=== PATIENT | male | born 1950 | race Caucasian/White ===

== ENCOUNTER 2016-06-02 11:09 | Observation (INO) | payer OTHER ==
[~2016-06-02 11:09] MED LIST: Buffered Lidocaine 1% SYRIN* 3 ML/SYR SYRINGE INTRADERM ONE
[2016-06-02] MEDS ORDERED: Morphine INJ* 10 MG/ML 1 ML SYRINGE ONE (12:39)
[2016-06-02] MEDS ORDERED: Benzocaine/Butamben/Tetracain* SPRAY ONE (14:32)
[2016-06-02] MEDS ORDERED: Lidocain 1% EPI 1:100,000 * 30 ML MDV ONE (14:45)
[2016-06-02] MEDS ORDERED: Bacitracin OINTMENT* 1 TUBE ONE (14:46)
[2016-06-02] MEDS ORDERED: Phenylephrine 0.25% NASAL* PUFF ONE (14:58)
[2016-06-02] MEDS ORDERED: Midazolam* 1 MG/ML 5 ML VIAL (5 MG) ONE (14:58)
[2016-06-02] MEDS ORDERED: Lidocaine 2% JELLY* 6 ML JELLY TOPICAL ONE (14:59)
[2016-06-02] MEDS ORDERED: Propofol* 10 MG/ML 20 ML BTL IV PUSH ONE (14:59)
[2016-06-02] MEDS ORDERED: Phenylephrine 0.5% NASAL* BTL ONE (14:59)
[2016-06-02] MEDS ORDERED: fentaNYL* 50 MCG/ML 2 ML VIAL (100 MCG VIAL) ONE ×3 (14:59→16:38)
[2016-06-02] MEDS ORDERED: Dexamethasone IV* 4 MG/ML 1 ML (4 MG) ONE (15:23)
[2016-06-02] MEDS ORDERED: fentaNYL* 50 MCG/ML 2 ML VIAL (100 MCG VIAL) IV PRN (17:13)
[2016-06-02] MEDS ORDERED: Ondansetron INJ* 2 MG/ML VIAL IV PRN ×2 (17:13→20:06)
[2016-06-02] MEDS ORDERED: DiMENhydriNATE IV* 50 MG/ML VIAL IV PUSH PRN (17:13)
[2016-06-02] MEDS ORDERED: diPHENhydraMINE IV* 50 MG/ML 1 ml VIAL (BENADRYL) IV PRN (17:13)
[2016-06-02] MEDS ORDERED: Ondansetron INJ* 2 MG/ML VIAL ONE (17:39)
[2016-06-02] MEDS ORDERED: HYDROmorphone* 1 MG/ML 1 ML SYR ONE (18:02)
[2016-06-02] MEDS: HYDROmorphone* 1 MG/ML 1 ML SYR IV PRN ×5 (18:03→19:20)
[2016-06-02] MEDS ORDERED: Acetaminophen TAB* 325 MG PO PRN (20:03)
[2016-06-02] MEDS ORDERED: Ibuprofen TAB* 800 MG PO PRN (20:03)
[2016-06-02] MEDS ORDERED: HYDROcodone/ACETAMIN 5-325 MG* 1 TAB PO PRN ×2 (20:04)
[2016-06-02] MEDS ORDERED: Ondansetron TAB* 4 MG PO PRN (20:06)
[2016-06-02] MEDS ORDERED: Ondansetron INJ* 2 MG/ML VIAL IM PRN (20:06)
[2016-06-02] MEDS ORDERED: Lidocaine 2% VISCOUS* 15 ML UDC PO PRN (20:10)
[2016-06-02] MEDS ORDERED: Polyethylene Glycol 3350* 17 GM PACKET PO PRN (20:10)
[2016-06-02] MEDS: MAGIC MOUTHWASH PO SCH (21:45)
--- NOTE | 2016-06-03 01:33 | CONS ---
[facility] MEDICINE CONSULTATION REPORT: DATE OF CONSULTATION: 06/02/16 ATTENDING PHYSICIAN: Dr. Sudhir Hollins. CONSULTING PHYSICIAN: Sulaiman Rea (dictation provided by Jessica Paris NP) REASON FOR CONSULTATION: Medical comanagement in the patient admitted for left neck dissection due to left tonsillar cancer. HISTORY OF PRESENT ILLNESS: Mr. Mancia is a 66-year-old male with a longstanding smoking history. 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 He has undergone radiation and chemotherapy, but a recent PET scan showed concern for residual disease in the left neck. He therefore followed up with Dr. Hollins, Dr. Rea, and Dr. Millard and a left neck dissection was scheduled for today. Mr. Mancia states that he has been feeling quite poorly secondary to this cancer and the treatment for it. He has had severe case of thrush for which he is taking Miracle Mouthwash and nystatin, which he says has not improved his symptoms. He has not been able to eat since starting therapy and currently has a G-tube placed. He denies any other symptoms. He has had no chest pain, no shortness of breath, no nausea, abdominal pain. PAST MEDICAL HISTORY: 1. Hypertension. 2. Atrial fibrillation. 3. Lymphadenopathy. 4. History of congestive heart failure. MEDICATIONS: 1. Tylenol p.r.n. 2. Aspirin 81 mg via G-tube daily. 3. Dronedarone 400 mg via G-tube daily. 4. Lidocaine 50 mL p.o. 4 times a day p.r.n. 5. Lisinopril 10 mg p.o. daily. 6. Morphine concentrate 10 mg p.o. q.3 hours p.r.n. 7. MiraLAX 17 g via PEG tube daily p.r.n. 8. Rivaroxaban 20 mg p.o. daily. 9. Miracle Mouthwash 4 times daily p.r.n. ALLERGIES: No known drug allergies. FAMILY HISTORY: The patient reports that mother and father both live in their old age. He is unable to provide me with further information today. SOCIAL HISTORY: The patient is a former smoker, quit last year. No report of alcohol or drug use. He states he lives with his , who is the healthcare proxy. REVIEW OF SYSTEMS: A 14-point review of systems was completed with Mr. Mancia and all those not mentioned above were negative. PHYSICAL EXAMINATION: Vital Signs: Temperature 99.1, pulse rate 103, respiratory rate 16, O2 saturation 94% on 2 L nasal cannula, blood pressure 141/ 71. General: Mr. Mancia is lying in the bed. He is in no acute distress. Neuro: He is alert and oriented x3, moves all extremities equally. There is no facial asymmetry or focal weakness. Extraocular movements are intact. Heart : S1, S2. No murmur, rub, or gallop and regular. Lungs are clear to auscultation bilaterally with no accessory muscle use and good aeration. Abdomen: Soft, nontender with bowel sounds positive x4. Extremities: No cyanosis or edema. Skin: Intact. HEENT: Pupils are equal and reactive. The patient has swelling noted actually to the right neck. The patient states this has been an ongoing issues since starting treatment for left tonsillar cancer. He is swallowing easily. He has actually eaten some apple sauce today. He is breathing easily. DIAGNOSTIC STUDIES/LAB DATA: On 05/24/16, WBC 5.8, hemoglobin 11.3, hematocrit 34, platelet count 260. Sodium 131, potassium 4.7, chloride 95, serum bicarbonate 30, BUN 17, creatinine 0.74, glucose 74. ASSESSMENT: Ms. 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 Our recommendations are as follows: 1. Postop day #0, status post dissection of left tonsillar cancer: Management will be per ENT. The patient will have pain medication p.r.n. and notes that he is breathing easily and swallowing easily tonight. The patient states that he gets his primary nutrition through his G-tube. He does not know what type of tube feeding he has been using. He anticipates discharge home tomorrow. If he does continue to stay with us, we can either get that information from his family or have dietitian consult for recommendations for feeding while inpatient. 2. History of atrial fibrillation. Continue Multaq. The patient's heart rate is controlled. The patient was seen preoperatively by Dr. Adames who saw that no further cardiac testing was indicated and recommended that the patient resume Xarelto when approved for surgery and note that Dr. Hollins has already approved rivaroxaban to start tomorrow. 3. Hypertension. Continue lisinopril. 4. DVT prophylaxis with Xarelto to start tomorrow. SCDs have been ordered for tonight. 5. Disposition per ENT surgeons. 6. Code status is full code. TIME SPENT: Approximately 60 minutes were spent in the consultation of this patient, more than half the time was spent with the patient at bedside reviewing the events leading up to this hospitalization, performing the physical examination, and reviewing the [place] [id number]/[facility] #: [id number] OBDULIO
[2016-06-03] MEDS: Morphine ORAL.SOLN 10 mg* 2 MG/ML UDC 5 ml PO PRN ×2 (05:08→09:00)
[2016-06-03] MEDS: MAGIC MOUTHWASH PO SCH (08:56)
[2016-06-03] MEDS ORDERED: Lisinopril TAB* 10 MG PO SCH (09:00)
[2016-06-03] MEDS ORDERED: Dronedarone TAB* 400 MG PO SCH (09:00)
[2016-06-03] MEDS ORDERED: Rivaroxaban TAB(*) 20 MG TAB PO SCH (09:00)
[2016-06-03 11:59] VITALS: BP 96/54
--- NOTE | 2016-06-03 13:32 | OP ---
DATE OF OPERATION: 06/02/16 - ROOM #333 DATE OF : 54 SURGEON: Sudhir Hollins MD. DATA ANALYTICS SPECIALIST: Jacques Zaidi MD ANESTHESIOLOGIST: Domenico Caal MD ANESTHESIA: General endotracheal anesthesia. 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 OPERATIVE PROCEDURE: Left selective neck dissection. ESTIMATED BLOOD LOSS: Less than 20 mL. DRAINS: #10 DOYLE was placed. COMPLICATIONS: None. DESCRIPTION OF PROCEDURE: The patient was taken to the operating room, placed in a supine position on the operating table, general anesthesia induced, and he was orotracheally intubated. His neck was extended and turned. Apron incision was demarcated from the left mastoid tip inferiorly into the skin crease at the level of the cricoid crossing midline and this was injected with a 1% lidocaine with 1:100,000 epinephrine. He was prepped with Betadine and draped in a sterile fashion. Incisions were made through the skin, through the platysma muscle and superior and inferior flaps were raised. The inferior border of the submandibular gland was found and the dissection was taken down to the digastric , which was the superior aspect of the dissection. Relevant structures that were found and preserved were the spinal accessory nerve, the hypoglossal nerve , the carotid artery, jugular vein, vagus nerve. The dissection was taken posteriorly into the submuscular recess. This was taken off the floor of the neck underneath the spinal accessory nerve. The fascia was peeled off with the sternocleidomastoid muscle and was unwrapped. The specimen was taken anteriorly , taken underneath the sternocleidomastoid muscle to the deep layers of the neck and was peeled off the deep cervical fascia. The internal jugular vein was unwrapped and dissection was taken down to the carotid and the vagus nerve and the dissection was peeled off with those. The fascia was lifted off the lateral aspect of the larynx and the dissection was removed from the patient's neck. Hemostasis was ensured. The wound was irrigated. A #10 DOYLE was placed. The skin was closed with 3-0 deep dermal Polysorbs and stapled. [id number]/[facility] #: [id number] [facility]
--- NOTE | 2016-06-04 04:51 | DS ---
DISCHARGE SUMMARY: DATE OF ADMISSION: 06/02/16 DATE OF DISCHARGE: 06/03/16 ADMISSION DIAGNOSIS: Left neck dissection for left tonsillar cancer. SECONDARY DIAGNOSES: 1. Hypertension. 2. Atrial fibrillation. 3. Lymphadenopathy. 4. History of congestive heart failure. DISCHARGE DIAGNOSES: 1. Left neck dissection for left tonsillar cancer. 2. Hypertension. 3. Atrial fibrillation. 4. Lymphadenopathy. 4. History of congestive heart failure. HOSPITAL COURSE: The patient is a 66-year-old gentleman who presented to [facility] for left neck dissection by Dr. Hollins. Management as for the left neck dissection was performed by Dr. Hollins. Our assistance was asked in the help of this hypertension and atrial fibrillation. His Xarelto was held, continued his Multaq. The patient did well through the surgery and was stable for discharge on 06/03/16. His blood pressure was adequately managed. Conversation was had with the surgeon, and the patient and the patient will hold his Xarelto for the next 7 days as well as his aspirin until we follows up with [facility] next Tuesday when he sees Dr. Hollins. At that point, he can restart the medications. PHYSICAL EXAMINATION ON THE DATE OF DISCHARGE: General: Overweight gentleman, sitting up in bed, in no acute distress. Vital Signs: Temperature 97.6 degrees , heart rate 88 beats per minute, respiratory rate 16 breaths per minute, pulse ox 100%, blood pressure 129/56. HEENT: Normocephalic, atraumatic. Neck: Large wound, clean, dry and intact on the left side of his neck. Chest: Clear to auscultation and percussion bilaterally. Cardiovascular: S1, S2 appreciated. Abdomen: Obese, positive bowel sounds in all 4 quadrants, soft, nontender. Extremities: No cyanosis, or clubbing, 2+ peripheral pulses bilaterally. Neuro: Alert and oriented x3. Moves all extremities. Skin: No rashes or abnormalities. DISCHARGE MEDICATIONS: 1. MiraLAX via PEG tube daily as needed. 2. Morphine oral concentrate every 3 hours as needed for pain. 3. Lisinopril 10 mg daily. 4. Lidocaine Viscous 15 cc 4 times a day as needed. 5. Multaq 400 mg daily. 6. Aspirin 81 mg daily. 7. Acetaminophen 600 mg every 4 hours as needed via PEG tube. 8. Compound mouthwash 2 teaspoons 4 times a day as needed. 9. Again, he will start the Xarelto and aspirin as an outpatient next week. DISCHARGE PLAN: The patient is discharged home. He is to follow up with Dr. Hollins next week. He is to follow up with his PCP within 1 week. The patient to return to ED if has any worrisome symptoms. Over 40 minutes were spent on this discharge, more than 25 minutes of which were spent in direct dsvi-ru-ehom contact with the patient in evaluation, physical exam, counseling and coordination of care. CC: Dr. Nils Hollins; Dex Kim MD * [id number]/[facility] #: [id number] [facility]PITALNavid
== END 2016-06-03 12:25 | disposition home or self-care (01) ==
LOC: OR 11:09 → SSU 19:45
PROVIDERS: ADMIT Otolaryngology; ATTEND Otolaryngology
DX: C77.0 Secondary and unspecified malignant neoplasm of lymph nodes of head, face and neck (principal); I10 Essential (primary) hypertension; I48.91 Unspecified atrial fibrillation; F17.200 Nicotine dependence, unspecified, uncomplicated; R59.1 Generalized enlarged lymph nodes; Z79.82 Long term (current) use of aspirin; Z79.01 Long term (current) use of anticoagulants
CPT/HCPCS: 88307; 96365; 96375; A9270-GY; G0378; J1100; J1170; J2250; J2270; J2405; J2704; J3010

== ENCOUNTER 2017-05-22 18:59 | Emergency (ER) | payer MEDICARE, OTHER ==
--- NOTE | 2017-05-22 19:49 | RAD ---
INDICATION: Inability to get out of the chair in a patient with a history of stroke. COMPARISON: CT of the brain dated January 22, 2016 TECHNIQUE: Contiguous axial sections of the brain were obtained from the skull base to the vertex without contrast. FINDINGS: Unless otherwise specified comparisons below reference the 1515 CT of the brain. The ventricles, cisterns and sulci involutional changes similar in appearance to the previous CT the brain. In the white matter tracts of the right frontal lobe (image 19 of 32) there is a 1 cm hypoattenuating focus seen in the previous CT the brain. There is mild periventricular and subcortical white matter hypoattenuation, similar in appearance to the previous CT the brain, most consistent with chronic microvascular disease. Otherwise the jones-white matter differentiation is adequately maintained and there is no sulcal effacement. No significant focal abnormality or mass effect is present. There is no evidence for intracranial hemorrhage. No significant focal osseous abnormality is present. There is mild mucosal thickening of the visualized portions of the left maxillary sinus. There is near complete effusion of the left mastoid air cells as well as effusion of the right mastoid air cells. IMPRESSION: 1. There is a new 1 cm hypoattenuating focus in the white matter tracts of the right frontal lobe that was not seen on the previous CT the brain. On a background of microvascular disease that appears more chronic. The patient is exhibiting focal neurologic deficits superior characterization can be made with MRI of the brain. 2. Chronic left mastoid air cell effusion with interval development of mastoid air cell effusion on the right as well relative to the January 22, 2016 CT of the brain. Please correlate to any focal tenderness overlying the mastoid processes.
[2017-05-22 20:04] LABS: ABS Basophils 0 10^3/ul (0-0.2); ABS Eosinophils 0 10^3/ul (0-0.6); ABS Lymphocytes 1.3 10^3/ul (1.0-4.8); ABS Monocytes 0.5 10^3/ul (0-0.8); ABS Neutrophils 12.2 10^3/ul (1.5-7.7); ABS Nucleated RBC 0 10^3/ul; Eosinophil % 0 % (0-6); Hematocrit 37 % (42-52); Hemoglobin 12.5 g/dl (14.0-18.0); Lymphocyte % 9.1 % (25-47); Mean Corpuscular HGB Conc 34 g/dl (31-36); Mean Corpuscular Hemoglobin 30 pg (27-31); Mean Corpuscular Volume 87 fL (80-94); Mean Platelet Volume 6.9 um3 (7.4-10.4); Nucleated Red Blood Cells % 0; Platelet Count 303 10^3/ul (150-450); Red Blood Count 4.21 10^6/ul (4.0-5.4); Red Cell Distribution Width 15 % (10.5-15)
[2017-05-22 20:11] LABS: INR 1.38 (0.77-1.02)
[2017-05-22 20:19] LABS: EGFR Non-African American 104.5 (>60)
[2017-05-22] MEDS ORDERED: NS 0.9% 1000 ML* 1,000 ML IV ONE (20:31)
--- NOTE | 2017-05-22 20:55 | RAD ---
INDICATION: Productive cough COMPARISON: Most recent comparison chest x-rays dated February 03, 2016 TECHNIQUE: Single AP portable view of the chest was obtained. FINDINGS: Image quality is compromised due to the relative inferiority of a portable chest x-ray. The heart and mediastinum exhibit normal size and contour. There is patchy infiltrate overlying the right lower lung. Elsewhere the lungs are grossly clear. There is no evidence of a large pleural effusion. Visualized bones are normal for the patient's age. IMPRESSION: Patchy infiltrate overlying the right lower lung could be pneumonia or other infiltrate depending on the patient's clinical presentation.
[2017-05-22] MEDS ORDERED: Piperacillin/Tazobac ADVAN(*) 3.375 GM in NS 0.9% 100 ML* 100 ML IVPB ONE (21:07)
[2017-05-22 22:40] VITALS: BP 132/62
--- NOTE | 2017-05-22 23:01 | ED ---
Bernie Castro Gabriel, scribed for Missy Olivo MD on 05/22/17 at 1932 . Neurological HPI - HPI Summary HPI Summary: This patient is a 67 year old M presenting to [facility] accompanied by his with a chief complaint of a possible CVA. Pts states yesterday and today the pt has been experiencing similar symptoms to his last TIA which occurred last week. She reports fatigue, weakness, unable to walk, flank pain, diaphoresis, low BP, and slurred speech. Patient denies increased facial droop on the left sided. He also personally has no specific complaints except for the flank pain. Pt had a CVA recently and was seen at [facility] there he was given an MRI and sonogram, but they could not remove the clot due to the severe blockage. There was no rehab performed and the patient was discharged 4 days ago. Currently he takes eliquis, Lipitor, multaq, and ASA. Pt is able to ambulate in the ED. History of throat, head, and neck cancer with chemo that left him with left sided weakness as result. He was seen a week ago for difficulty ambulating. The MRI performed then showed a right frontal subacute hemorrhage infarct. 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 - History of Current Complaint Chief Complaint: EDWeakness Stated Complaint: POSSIBLE STROKE Time Seen by Provider: 05/22/17 19:03 Hx Obtained From: Patient Onset/Duration: Started days ago - 1, Still Present Timing: Constant Onset Severity: Mild Current Severity: Moderate Pain Intensity: 8 Pain Scale Used: 0-10 Numeric Associated Signs and Symptoms: Positive: Negative - increased facial droop, Weakness, Impaired Speech - Additional Pertinent History Primary Care Physician: [id number] - Allergy/Home Medications Allergies/Adverse Reactions: Allergies Allergy/AdvReac Type Severity Reaction Status Date / Time No Known Allergies Allergy Verified 05/22/17 20:20 Home Medications: Home Medications Apixaban* [Eliquis*] 5 mg PO BID 05/22/17 [History Confirmed 05/22/17] Atorvastatin* [Lipitor*] 10 mg PO QPM 05/22/17 [History Confirmed 05/22/17] Morphine TAB Extended Rel(*) [Ms Contin(*)] 15 mg PO Q12HR PRN MDD 30mg [History Confirmed 05/22/17] Varenicline (NF) [Chantix 1 MG TAB (NF)] 1 mg PO DAILY 05/22/17 [History Confirmed 05/22/17] PMH/Surg Hx/FS Hx/Imm Hx Endocrine/Hematology History: Denies: Hx Diabetes Cardiovascular History: Reports: Hx Congestive Heart Failure, Other Cardiovascular Problems/Disorders - IRREGULAR HEARTBEAT Denies: Hx Hypertension, Hx Pacemaker/ICD Respiratory History: Reports: Hx Pulmonary Embolism - march 2016 - resolved with Dr. Rea, Other Respiratory Problems/Disorders - tonsil cancer GI History: Reports: Other GI Disorders - peg tube History: Denies: Hx Renal Disease Musculoskeletal History: Reports: Hx Arthritis, Hx Orthopedic Injury - surgery bilat knee, Other Musculoskeletal History - recent right knee infection with aspiration / staph infection- resolved Sensory History: Reports: Hx Contacts or Glasses Denies: Hx Hearing Aid Opthamlomology History: Reports: Hx Contacts or Glasses Psychiatric History: Reports: Hx Substance Abuse - ETOH Denies: Hx Panic Disorder - Cancer History Cancer Type, Location and Year: MOUTH, Neck? Hx Chemotherapy: Yes - and radiation Hx Radiation Therapy: Yes Hx Palliative Cancer Treatment: No - Surgical History Surgery Procedure, Year, and Place: Peg tube placed 12/2015 , Left Neck Lymphnodes Removed Hx Anesthesia Reactions: No Infectious Disease History: No Infectious Disease History: Reports: History Other Infectious Disease - staph rt knee Denies: Traveled Outside the [place] in Last 30 Days - Family History Known Family History: Positive: Hypertension, Diabetes, Other - stroke - Social History Alcohol Use: None Alcohol Amount: hx of ETOH abuse per prior records Substance Use Type: Reports: None Hx Tobacco Use: Yes Smoking Status (MU): Former Smoker Type: Cigarettes Amount Used/How Often: smsoked 30-35 years 1 1/2 ppd Length of Time of Smoking/Using Tobacco: 35 yrs Have You Smoked in the Last Year: Yes Review of Systems Positive: Fatigue, Skin Diaphoresis, Other - unable to walk Positive: Other - low BP Positive: flank pain Neurological: Negative - facial droop Positive: Weakness, Slurred Speech All Other Systems Reviewed And Are Negative: Yes Physical Exam - Summary Physical Exam Summary: VITAL SIGNS: Reviewed. GENERAL: Patient is an elderly male who is lying comfortable in the stretcher. Patient is not in any acute respiratory distress. HEAD AND FACE: No signs of trauma. No ecchymosis, hematomas or skull depressions. No sinus tenderness. EYES: PERRLA, EOMI x 2, No injected conjunctiva, no nystagmus. EARS: Hearing grossly intact. Ear canals and tympanic membranes are within normal limits. MOUTH: Oropharynx within normal limits. NECK: Supple, trachea is midline, no adenopathy, no JVD, no carotid bruit, no c- spine tenderness, neck with full ROM. CHEST: Symmetric, no tenderness at palpation LUNGS: Clear to auscultation bilaterally. No wheezing or crackles. CVS: Regular rate and rhythm, S1 and S2 present, no murmurs or gallops appreciated. ABDOMEN: Soft, non-tender. No signs of distention. No rebound no guarding, and no masses palpated. Bowel sounds are normal. EXTREMITIES: FROM in all major joints, no edema, no cyanosis or clubbing. NEURO: Alert and oriented x 3. Speech is normal and follows commands. Motor is grossly nonfocal, Pt has a left sided facial droop that is old. Mild dysarthria that is also old. Pt amulabtes in the ED on his own. SKIN: Dry and warm Triage Information Reviewed: Yes Vital Signs On Initial Exam: Initial Vitals Temp Pulse Resp BP Pulse Ox 97.5 F 83 20 123/66 93 05/22/17 19:02 05/22/17 19:02 05/22/17 19:02 05/22/17 19:02 05/22/17 19:02 Vital Signs Reviewed: Yes Diagnostics - Vital Signs Vital Signs Temp Pulse Resp BP Pulse Ox 05/22/17 19:07 19 123/66 05/22/17 19:02 97.5 F 83 20 123/66 93 - Laboratory Result Diagrams: 05/22/17 19:50 05/22/17 19:50 Lab Statement: Any lab studies that have been ordered have been reviewed, and results considered in the medical decision making process. - Radiology CXR Radiology Interpretation Completed By: Radiologist - Patchy infiltrate overlying the right lower lung could be pneumonia or other infiltrate depending on the patient's clinical presentation. ED physician has reviewed this radiology report. - CT CT Brain CT Interpretation Completed By: Radiologist - 1. There is a new 1 cm hypoattenuating focus in the white matter tracts of the right frontal lobe that was not seen on the previous CT the brain. On a background of microvascular disease that appears more chronic. The patient is exhibiting focal neurologic deficits superior characterization can be made with MRI of the brain. 2. Chronic left mastoid air cell effusion with interval development of mastoid air cell effusion on the right as well relative to the January 22, 2016 CT of the brain. Please correlate to any focal tenderness overlying the mastoid processes. ED physician has reviewed this radiology report. - EKG 19:42 Cardiac Rate: NL EKG Rhythm: Sinus Rhythm - at 78 BPM EKG Interpretation: Normal axis. Normal interval. No ischemic changes Re-Evaluation - Re-Evaluation First Eval Re-Evaluation Time: 21:29 Change: Unchanged Comment: I discussed the test results with the patient as well as the course of treatment. He understands and agrees. Course/Dx - Course Assessment/Plan: This patient is a 67 year old M presenting to [facility] accompanied by his with a chief complaint of a possible CVA. Pts states yesterday and today the pt has been experiencing similar symptoms to his last TIA which occurred last week. She reports fatigue, weakness, unable to walk , flank pain, diaphoresis, low BP, and slurred speech. Patient denies increased facial droop on the left sided. He also personally has no specific complaints except for the flank pain. Pt had a CVA recently and was seen at [facility] there he was given an MRI and sonogram, but they could not remove the clot due to the severe blockage. There was no rehab performed and the patient was discharged 4 days ago. Currently he takes eliquis, Lipitor, multaq, and ASA. Pt is able to ambulate in the ED. History of throat, head, and neck cancer with chemo that left him with left sided weakness as result. He was seen a week ago for difficulty ambulating. The MRI performed then showed a right frontal subacute hemorrhage infarct. 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 An EKG reveals sinus 78 Normal axis. Normal interval. No ischemic changes. CT Brain reveals, per radiologist, 1. There is a new 1 cm hypoattenuating focus in the white matter tracts of the right. frontal lobe that was not seen on the previous CT the brain. On a background of microvascular disease that appears more chronic. The patient is exhibiting focal neurologic deficits superior characterization can be made with MRI of the brain. 2. Chronic left mastoid air cell effusion with interval development of mastoid air cell. effusion on the right as well relative to the January 22, 2016 CT of the brain. Please. correlate to any focal tenderness overlying the mastoid processes. CXR reveals, per radiology, Patchy infiltrate overlying the right lower lung could be pneumonia or other. infiltrate depending on the patient's clinical presentation. Pts CT did show a hypodense area in right frontal lobe that corresponds with the infarct from the MRI a week ago. Pt neuro exam is at baseline and he was found to have right lower lobe infiltrate, possible aspiration PNA. PT was given one dose zosyn in the ED and I discussed admission and he states he would rather go home. Pts was in the room and understands and agrees with the course of treatment, there are no further questions at this time. DX PNA. Patient will be discharged with prescription for Augmentin and follow up from PCP. The patient is agreeable with this plan. - Diagnoses Provider Diagnoses: PNA (pneumonia) Discharge - Sign-Out/Discharge Documenting (check all that apply): Discharge - Discharge Plan Condition: Stable Disposition: HOME Patient Education Materials: Pneumonia (ED) Referrals: Dex Kim MD [Primary Care Provider] - 3 Days Additional Instructions: RETURN TO THE ER FOR ANY NEW OR WORSENING SYMPTOMS The documentation as recorded by the Bernie bermudez Gabriel accurately reflects the service I personally performed and the decisions made by , Missy Olivo MD.
== END 2017-05-22 22:40 | disposition home or self-care (01) ==
LOC: ED 18:59
DX: J18.9 Pneumonia, unspecified organism (principal); R53.83 Other fatigue; M54.5 Low back pain; R53.1 Weakness; Z87.891 Personal history of nicotine dependence
CPT/HCPCS: 36415; 70450; 71045; 80053; 83735; 85025; 85610; 85730; 87040; 93005; 99283; J2543

== ENCOUNTER 2018-01-22 08:22 | Inpatient (IN) | payer MEDICARE, OTHER ==
[2018-01-22] MEDS ORDERED: NS 0.9% 1000 ML* 1,000 ML IV ONE ×3 (08:25→11:08)
--- NOTE | 2018-01-22 08:39 | ED ---
Neurological HPI - HPI Summary HPI Summary: Pt is a 67 y/o male brought in by EMS who presents to the ED c/o left-sided neurological deficit. His last known well was at 23:00 last night. Pt c/o left- sided weakness, left-sided sensory deficit, LUE and LLE drift, left-sided facial droop, dysarthria, and diarrhea. He has tonsillar cancer and his last dose of Morphine was last night at 21:00. Pt is on Coumadin and Eliquis, and had a dose of Coumadin this morning. PMHx TIA. - History of Current Complaint Stated Complaint: POSSIBLE STROKE Time Seen by Provider: 01/22/18 08:25 Hx Obtained From: Patient, EMS Onset/Duration: Gradual Onset, Started hours ago - 23:00 last night, Still Present Timing: Constant Neurological Deficit Location: LUE, LLE Pain Intensity: 0 Pain Scale Used: 0-10 Numeric Character: Motor Weakness, Sensory Loss Related Hx: Coumadin - Additional Pertinent History Primary Care Physician: BERTIN - Allergy/Home Medications Allergies/Adverse Reactions: Allergies Allergy/AdvReac Type Severity Reaction Status Date / Time No Known Allergies Allergy Verified 08/05/17 08:10 PMH/Surg Hx/FS Hx/Imm Hx Endocrine/Hematology History: Denies: Hx Diabetes Cardiovascular History: Reports: Hx Congestive Heart Failure, Hx Hypertension, Other Cardiovascular Problems/Disorders - HX OF MINI STROKE Denies: Hx Pacemaker/ICD Respiratory History: Reports: Hx Pulmonary Embolism - march 2016 - resolved with Dr. Rea, Other Respiratory Problems/Disorders - tonsil cancer GI History: Reports: Other GI Disorders - peg tube History: Denies: Hx Dialysis, Hx Renal Disease Musculoskeletal History: Reports: Hx Arthritis, Hx Orthopedic Injury - surgery bilat knee, Other Musculoskeletal History - recent right knee infection with aspiration / staph infection- resolved Sensory History: Reports: Hx Contacts or Glasses Denies: Hx Hearing Aid Opthamlomology History: Reports: Hx Contacts or Glasses Neurological History: Reports: Hx Transient Ischemic Attacks (TIA) Psychiatric History: Reports: Hx Substance Abuse - ETOH Denies: Hx Panic Disorder - Cancer History Cancer Type, Location and Year: MOUTH, Neck? Hx Chemotherapy: Yes - and radiation Hx Radiation Therapy: Yes Hx Palliative Cancer Treatment: No - Surgical History Surgery Procedure, Year, and Place: Peg tube placed 12/2015 removed, Left Neck Lymphnodes Removed Hx Anesthesia Reactions: No Infectious Disease History: No Infectious Disease History: Reports: History Other Infectious Disease - staph rt knee Denies: Traveled Outside the [place] in Last 30 Days - Family History Known Family History: Positive: Hypertension, Diabetes, Other - stroke - Social History Alcohol Use: None Alcohol Amount: hx of ETOH abuse per prior records Hx Substance Use: No Substance Use Type: Reports: None Hx Tobacco Use: Yes Smoking Status (MU): Former Smoker Type: Cigarettes Amount Used/How Often: smsoked 30-35 years 1 1/2 ppd Length of Time of Smoking/Using Tobacco: 35 yrs Have You Smoked in the Last Year: Yes Review of Systems Negative: Fever Positive: Diarrhea Neurological: Other - dysarthria Positive: Weakness, Numbness All Other Systems Reviewed And Are Negative: Yes Physical Exam - Summary Physical Exam Summary: Appearance: chronically-ill appearing, no pain distress Skin: warm, dry, reflects adequate perfusion, thin, frail Head/face: normal Eyes: EOMI, ARPITA, dense cataract in right eye ENT: mucous membranes very dry Neck: supple, non-tender, tumor underneath chin Respiratory: CTA, breath sounds present Cardiovascular: RRR, pulses symmetrical Abdomen: non-tender, soft Bowel Sounds: present Musculoskeletal: normal, strength/ROM intact Neuro: A&Ox3, drift LUE and LLE, ataxic LLE, mild dysarthria, sensory deficit LLE, mild left facial droop GCS: 15 Triage Information Reviewed: Yes Vital Signs On Initial Exam: Initial Vitals Temp Pulse Resp BP Pulse Ox 98.8 F 97 19 117/58 91 01/22/18 08:30 01/22/18 08:30 01/22/18 08:30 01/22/18 08:30 01/22/18 08:30 Vital Signs Reviewed: Yes Diagnostics - Vital Signs Vital Signs Temp Pulse Resp BP Pulse Ox 01/22/18 08:30 98.8 F 97 19 117/58 91 - Laboratory Result Diagrams: 01/22/18 08:47 01/22/18 08:47 Lab Statement: Any lab studies that have been ordered have been reviewed, and results considered in the medical decision making process. - Radiology CXR Radiology Interpretation Completed By: Radiologist Summary of Radiographic Findings: RIGHT GREATER THAN LEFT BIBASILAR CONSOLIDATION. RECOMMEND FOLLOW-UP UNTIL RESOLUTION TO EXCLUDE UNDERLYING PULMONARY PARENCHYMAL PATHOLOGY. ED physician reviewed radiology report. - CT Brain CT CT Interpretation Completed By: Radiologist Summary of CT Findings: 1. NO ACUTE INTRACRANIAL PATHOLOGY. 2. CHRONIC SMALL VESSEL ISCHEMIC CHANGES. 3. CHRONIC APPEARING INFARCTS OF THE RIGHT CEREBRAL HEMISPHERE. ED physician reviewed radiology report. Head CTA CT Interpretation Completed By: Radiologist Summary of CT Findings: 1. THERE HAS BEEN INTERVAL OCCLUSION OF THE RIGHT COMMON CAROTID ARTERY ORIGIN NARROWING AT THE BRACHIOCEPHALIC TRUNK EXTENDING INTO THE RIGHT INTERNAL CAROTID ARTERY. THERE IS PARTIAL RECONSTITUTION OF THE PETROUS AND CAVERNOUS PORTIONS OF THE RIGHT INTERNAL CAROTID. ARTERY WITH RECONSTITUTION OF THE SUPRACLINOID RIGHT INTERNAL CAROTID ARTERY. THIS APPEARS ACUTE TO SUBACUTE. THE RIGHT SUBCLAVIAN ARTERY IS PATENT DISTALLY. 2. AGAIN NOTED IS OCCLUSION VERSUS HIGH-GRADE STENOSIS OF THE PROXIMAL RIGHT VERTEBRAL ARTERY WITH DISTAL RECONSTITUTION. 3. THERE IS HIGH-GRADE OSTIAL STENOSIS OF THE LEFT VERTEBRAL ARTERY. 4. THERE IS ATHEROSCLEROSIS OF THE LEFT CAROTID BIFURCATION, WITHOUT LEFT INTERNAL CAROTID ARTERY STENOSIS BY NASCET CRITERIA. 5. THERE IS FASCIAL THICKENING AND SOFT TISSUE THICKENING ALONG THE LEFT ANTERIOR NECK WHICH MAY RELATED TO TREATMENT EFFECT VERSUS TUMOR. 6. THERE HAS BEEN INTERVAL DEVELOPMENT OF MILD COMPRESSION DEFORMITY OF T1 WITHOUT OSSEOUS RETROPULSION. 7. AGAIN NOTED IS MODERATE NARROWING OF THE MIDPORTION OF THE BASILAR ARTERY. ED physician reviewed radiology report. - EKG 8:47 Cardiac Rate: NL - 91 bpm EKG Rhythm: Sinus Rhythm ST Segment: Normal Summary of EKG Findings: 1st degree AV block, nl axis NIH Scale - NIH Scale Level of Consciousness: Alert/Keenly Responsive Ask Patient the Month and His/Her Age: Both Correct Ask Pt to Open/Close Eyes and Sole Edge Inker Machine/Release Non-Paretic Hand: Both Correctly Best Gaze (Only Horizontal Eye Movement): Normal Visual Field Testing: No Visual Loss Facial Paresis-Pt to Smile & Close Eyes or Grimace Symmetry: Minor Paralysis Motor Function - Right Arm: No Drift-Holds 10 Seconds Motor Function - Left Arm: Drifts LT 10 seconds Motor Function - Right Leg: No Drift-Holds 10 Seconds Motor Function - Left Leg: Drifts LT 10 seconds Limb Ataxia-Must be out of Proportion to Weakness Present: Present in One Limb Sensory (Use Pinprick to Test Arms/Legs/Trunk/Face): Pinprick Less on Affected Best Language (Describe Picture, Name Items): No Aphasia Dysarthria (Read Several Words): Slurs Some Words Extinction and Inattention: No Abnormality Total Score: 6 Re-Evaluation - Re-Evaluation First Eval Re-Evaluation Time: 09:13 Change: Unchanged Comment: Teleconsult with Dr. Radu Bryant at [facility]. 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 As per , they are aware that his common carotid is occluded. Pts stroke symptoms are not new. They fluctuate based on dehydration and fatigue. He was brought in for his weakness, diarrhea, and dehydration, rather than his neurological sx. Course/Dx - Course Course Of Treatment: Nurse's note reviewed. Patient with a complex medical history to include head and neck cancer. He presented by EMS with their concern for possible stroke. He had left-sided deficits noted within NIH as indicated above. Head CT was negative for any acute findings and online stroke neurology consultation was obtained. Following that the patient's was available. She indicates that the patient has chronic left-sided deficits from stroke sustained in April. 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 Today, he has some extension of thrombus into the right common carotid. It was felt by stroke neurology and radiology that this was not surgically amenable. Patient's indicates that his stroke symptoms get worse when he is ill or fatigue. Today she has called 911 and brought him here because sees had ongoing diarrhea, isn't drinking much and she has concern for dehydration. This is in fact true with bump in creatinine from 0.7 to 1.5. This may be causing worsen presentation of his previous stroke symptoms. Stroke neurology suggested holding the patient's anticoagulant until MRI is performed though this may be risky given his recent extension of thrombus. He will be hydrated extensively especially after receiving IV contrast for CT angiogram. He will be admitted to the hospitalist service here. He does have vascular surgery but that is in [place]. - Differential Dx Differential Diagnoses Neuro: Positive: Cerebrovascular Accident, Hemorrhage, Hypovolemia - Diagnoses Provider Diagnoses: History of head and neck cancer, Thrombosis of right common carotid artery, Acute renal failure, Acute diarrhea, Chronic focal neurological deficit - Physician Notifications Discussed Care Of Patient With: Radu Bryant Time Discussed With Above Provider: 09:17 Instructed by Provider To: Other - Dr. Bryant, neurologist at [place], had a teleconsult with pt. At 10:[address] Blevins who informed of CTA results. At 10:[address] Bryant, who said the pt is not a surgical candidate, and to hydrate the pt and hold the Eliquis. At 10:[address] Blevins, who said the common carotid occlusion is new and the pt is still not a surgical candidate. At 11:05 Dr. Calixto accepts pt for admission. - Critical Care Time Critical Care Time: 30-74 min - Critical care time is exclusive of separately billable procedures Discharge - Sign-Out/Discharge Documenting (check all that apply): Patient Departure - Admit - Discharge Plan Condition: Fair Disposition: ADMITTED TO [facility] - Billing Disposition and Condition Condition: FAIR Disposition: Admitted to [facility] - Attestation Statements Document Initiated by Tianae: Yes Documenting Scribe: Naomi Samuels Provider For Whom Scribe is Documenting (Include Credential): Rey Miguel MD Scribe Attestation: Naomi Castro scribed for Rey Miguel MD on 01/22/18 at 1415. Scribe Documentation Reviewed: Yes Provider Attestation: The documentation as recorded by the Naomi bremudez accurately reflects the service I personally performed and the decisions made by , Rey Miguel MD Status of Scribe Document: Viewed
--- OUTSIDE RECORDS SUMMARY | 2018-01-22 08:42 | XMS REPORT | Continuity of Care Document ---
:1950 External Reference #:[id number] Author Name Ahsan Caban M.D. Address [address] [place] [address] Care Team Providers Name Role Phone Dex Kim M.D. Primary Care Physician Unavailable Payers Type Date Identification Numbers Payment Provider Subscriber Policy Number: [id number] Medicare - NGS Lilliam Mancia PayID: [id number] [address] [place] [address] Policy Number: [id number] [employer] Ppo/Pos/Epo/Nap Lilliam Mancia Group Number: [id number] [address] PayID: [id number] [place] [address] Advance Directives Description No Information Available Problems Date Description Provider Status Onset: 04/28/2015 Nuclear senile cataract Nohelia Salazar O.D. Active Onset: 04/28/2015 Vitreous degeneration Nohelia Salazar O.D. Active Onset: 09/08/2015 Atrial fibrillation Nohelia Salazar O.D. 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 Active Onset: 12/07/2016 Central retinal vein occlusion with Ahsan Caban M.D. Active neovascularization Onset: 12/07/2016 Rubeosis iridis Ahsan Caban M.D. 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 twice a day Visine Tears 12/06/ Active Solution 0.2-0.2-1% 1 drop Ahsan 2016 both eyes Arsh, as needed M.D. Multivitamin / Active Tablets Adlt 50+ Unknown Adults 50+ 0000 Aspirin / Active Tablets DR 81mg Unknown 0000 Multaq / Active Tablets 400mg 2xday Unknown 0000 Pilocarpine / Active Tablets 5mg Unknown HCL 0000 Morphine / Active Tablets ER 15mg Unknown Sulfate ER 0000 Fluticasone / Active Suspension 50mcg/Act instill 2 Unknown Propionate 0000 sprays into each nostril daily Wellbutrin SR / Active Tablets ER 150mg Unknown 0000 12HR Atorvastatin / Active Tablets 20mg Unknown Calcium 0000 Eliquis / Active Tablets 5mg Unknown 0000 Timolol 12/07/ Hx Solution 0.5% 10ml 1 drop H34.8111 Ahsan Maleate 2017 - right Amberi, 10/13/ twice a M.D. 2018 day Xarelto / Hx Tablets 15mg 1xday Unknown 0000 - 2016 Ofloxacin / Hx Solution 0.3% 5 drops Unknown (Ophthalmic) 0000 - left ear twice a 2018 day until gone Medications Administered in Office Medication Date Status Form Strength Qnty SIG Indications Ordering Provider Avastin Administered Injection Ahsan Bevacizumab Luke Caban M.D. Avastin Administered Injection Ahsan Bevacizumab Luke Caban M.D. Avastin Administered Injection Ahsan Bevacizumab Luke Caban M.D. Avastin Administered Injection hAsan Caban M.D. Immunizations Description No Information Available Vital Signs Date Vital Result Comment 08/17/2017 1:31pm BP Systolic 115 mmHg BP Diastolic 70 mmHg Heart Rate 68 /min Respiratory Rate 15 /min 06/15/2017 2:22pm BP Systolic 115 mmHg BP Diastolic 70 mmHg Heart Rate 65 /min Respiratory Rate 15 /min 04/13/2017 3:03pm BP Systolic 135 mmHg BP Diastolic 69 mmHg Heart Rate 74 /min Respiratory Rate 15 /min 03/09/2017 2:57pm BP Systolic 121 mmHg BP Diastolic 70 mmHg Heart Rate 72 /min Results Description No Information Available Procedures Date Code Description Status 10/13/2017 48857 Est Patient Comprehensive Exam Completed 08/17/2017 15537 Injection Intravitreal Of A Pharmacologic Agent Completed 06/15/2017 66365 Injection Intravitreal Of A Pharmacologic Agent Completed 04/13/2017 50775 Injection Intravitreal Of A Pharmacologic Agent Completed 04/06/2017 52581 Scanning Computerized Opthalmic Diagnostic Posterior Seg Completed Retina 03/09/2017 29493 Injection Intravitreal Of A Pharmacologic Agent Completed 12/28/2016 23174 Scanning Computerized Ophthalmic Diagnostic Imag Posterior Completed Seg On 12/28/2016 50227 Pachymetry Completed 12/07/2016 35776 Est Patient Comprehensive Exam Completed 12/07/2016 92322 Gonioscopy Completed 12/07/2016 55813 Scanning Computerized Opthalmic Diagnostic Posterior Seg Completed Retina 11/05/2016 61882 Scanning Computerized Opthalmic Diagnostic Posterior Seg Completed Retina 11/05/2016 47311 Est Patient Comprehensive Exam Completed 04/28/2015 61771 Determination Of Refractive State Completed 04/28/2015 27608 Est Patient Comprehensive Exam Completed 04/17/2014 66160 Est Patient Comprehensive Exam Completed 04/13/2013 61881 Determination Of Refractive State Completed 04/13/2013 95113 New Patient Comprehensive Exam Completed Encounters Type Date Location Provider Dx Diagnosis Office Visit 04/06/2017 Ahsan Morel H34.8111 [facility] 8:00a , jostin Caban M.D. vein occlusion, right eye, w rtnl neovas Office Visit 03/01/2017 Ahsan Morel H34.8111 [facility] 8:45a , jostin Caban M.D. vein occlusion, right eye, w rtnl neovas H40.51x2 Glaucoma secondary to oth eye disord, r eye, moderate stage Office Visit 12/28/2016 8:45a Nils Foreman H34.8111 [facility] retinal MD Angélica, jostin Caban M.D. vein occlusion, right eye, w rtnl neovas H40.51x2 Glaucoma secondary to oth eye disord, r eye, moderate stage Plan of Treatment 01/12/2018 - Ahsan Caban M.D.H34.8111 Central retinal vein occlusion, right eye, with retinal neovComments:Smoking can increase the risk of developing or worsening any eye related disease, as well as affect your overall health. If you are a smoker, we strongly recommend that you quit.If you are not a smoker, we strongly recommend that you do not start. You have a Central Retinal Vein Occlusion. This occurs when the retinal veins have become blocked by, amongst other things, fat deposits or a blood clot. You are at an increased risk of having a Central Retinal Vein Occlusion if there has been any hardening of the arteries in the eye. Please follow any instructions given to you by Dr. Caban.H40.51x2 Glaucoma secondary to other eye disorders, right eye, moderaFollow up:6 Month Follow Up DFE OS You can expect to have your eyes dilated at your next visit. If Dr. Caban orders any additional testing, it may require extra time. We recommend that you bring sunglasses, as dilation drops often make you light sensitive until they wear off. We always recommend you bring someone to drive you home if you are uncomfortable driving with your eyes dilated. If you have any questions before your next visit, feel free to call our office at .
--- OUTSIDE RECORDS SUMMARY | 2018-01-22 08:42 | XMS REPORT | Continuity of Care Document ---
:1950 External Reference #:[id number] Author Name Ahsan Caban M.D. Address [address] [place] [address] Care Team Providers Name Role Phone Dex Kim M.D. Primary Care Physician Unavailable Payers Type Date Identification Numbers Payment Provider Subscriber Policy Number: [id number] Medicare - NGS Lilliam Mancia PayID: [id number] [address] [place] [address] Policy Number: [id number] A[employer] Ppo/Pos/Epo/Nap Lilliam Mancia Group Number: [id number] [address] PayID: [id number] [place] [address] Advance Directives Description No Information Available Problems [...] Luke Caban M.D. Avastin Administered Injection Ahsan Caban M.D. Immunizations Description No Information Available [...] Information Available Procedures Date Code Description Status 01/12/2018 92669 Est Patient Intermediate Exam Completed 10/13/2017 70153 Est Patient Comprehensive Exam Completed 08/17/2017 03824 Injection Intravitreal Of A Pharmacologic Agent Completed 06/15/2017 79119 Injection Intravitreal Of A Pharmacologic Agent Completed 04/13/2017 71487 Injection Intravitreal Of A Pharmacologic Agent Completed 04/06/2017 22185 Scanning Computerized Opthalmic Diagnostic Posterior Seg Completed Retina 03/09/2017 25607 Injection Intravitreal Of A Pharmacologic Agent Completed 12/28/2016 88181 Scanning Computerized Ophthalmic Diagnostic Imag Posterior Completed Seg On 12/28/2016 46787 Pachymetry Completed 12/07/2016 06148 Est Patient Comprehensive Exam Completed 12/07/2016 95610 Gonioscopy Completed 12/07/2016 68287 Scanning Computerized Opthalmic Diagnostic Posterior Seg Completed Retina 11/05/2016 85253 Scanning Computerized Opthalmic Diagnostic Posterior Seg Completed Retina 11/05/2016 29740 Est Patient Comprehensive Exam Completed 04/28/2015 80049 Determination Of Refractive State Completed 04/28/2015 23343 Est Patient Comprehensive Exam Completed 04/17/2014 52904 Est Patient Comprehensive Exam Completed 04/13/2013 21406 Determination Of Refractive State Completed 04/13/2013 96574 New Patient Comprehensive Exam Completed Encounters Type [...] 8:45a Nils Foreman H34.8111 Central retinal MD nAgélica, jostin Caban M.D. vein occlusion, right eye, w rtnl neovas H40.51x2 Glaucoma secondary to oth eye disord, r eye, moderate stage Plan of Treatment Future Appointment(s):07/13/2018 8:30 am - Ahsan Caban M.D. at Nils Lindsay MD, 01/12/2018 - Ahsan Caban M.D.H34.8111 Central retinal [...]
[2018-01-22 08:59] LABS: Hematocrit 37 % (42-52); Hemoglobin 12.4 g/dl (14.0-18.0); Mean Corpuscular HGB Conc 34 g/dl (31-36); Mean Corpuscular Hemoglobin 29 pg (27-31); Mean Corpuscular Volume 88 fL (80-94); Mean Platelet Volume 6.7 fL (7.4-10.4); Platelet Count 226 10^3/ul (150-450); Red Blood Count 4.22 10^6/ul (4.00-5.40); Red Cell Distribution Width 14 % (10.5-15); White Blood Count 13.7 10^3/ul (3.5-10.8)
[2018-01-22 09:13] LABS: INR 1.26 (0.77-1.02)
[2018-01-22 09:17] LABS: EGFR Non-African American 46.6 (>60)
[2018-01-22] MEDS ORDERED: Iodixanol* (CONTRAST) 320 MG/ML 100 ML SDV IV ONE (09:56)
[2018-01-22 10:45] LABS: ABS Basophils 0 10^3/ul (0-0.2); ABS Neutrophils 11.8 10^3/ul (1.5-7.7); Monocytes % 9 %
[2018-01-22] MEDS ORDERED: Acetaminophen TAB* 325 MG PO PRN (12:29)
[2018-01-22] MEDS ORDERED: Morphine VIAL* 4 MG/ML VIAL (1 ml vial) IV PRN (12:29)
[2018-01-22] MEDS ORDERED: NS 0.9% 1000 ML* 1,000 ML IV SCH (12:30)
[2018-01-22] MEDS ORDERED: Piperacillin/Tazobac ADVAN(*) 3.375 GM in NS 0.9% 100 ML* 100 ML IVPB ONE (12:34)
[2018-01-22] MEDS ORDERED: Zosyn per Pharmacy* NOTE FOLLOW UP SCH (13:00)
[2018-01-22] MEDS ORDERED: Piperacillin/Tazobac (*) 3.375 GM BAG ONE (13:08)
[2018-01-22 13:22] LABS: Urine Appearance Clear; Urine Blood 1+ (Negative); Urine Color Yellow; Urine Ketones Negative (Negative); Urine Protein Negative (Negative); Urine Red Blood Cell 1+(3-5/hpf) (Absent); Urine Specific Gravity 1.023 (1.010-1.030); Urine Urobilinogen Negative (Negative); Urine White Blood Cell Trace(0-5/hpf) (Absent)
[2018-01-22] MEDS: [UNRECOGNIZED DRUG - OTHER] SWISH SPIT SCH ×3 (15:04→21:30)
--- NOTE | 2018-01-22 16:39 | PN ---
Sepsis Event Evaluation Date of Evaluation: 01/22/18 Time of Evaluation: 16:30 Current Stage of Sepsis: Severe Sepsis Vital Signs - Last 12 Hours: Vital Signs - 12 hr Temp Pulse Resp BP Pulse Ox 01/22/18 15:08 98.8 F 79 18 119/58 96 01/22/18 13:24 96.3 F 81 16 94/61 90 01/22/18 13:14 96.7 F 79 16 124/56 94 01/22/18 13:10 84 17 94/61 91 01/22/18 13:00 86 15 91 01/22/18 12:40 87 20 101/63 90 01/22/18 12:10 84 24 104/77 92 01/22/18 12:00 90 21 93 01/22/18 11:39 83 18 124/58 94 01/22/18 11:10 86 18 110/58 95 01/22/18 11:00 80 14 93 01/22/18 10:39 84 18 112/65 95 01/22/18 10:23 82 17 98/50 94 01/22/18 10:00 83 18 100 01/22/18 09:40 79 18 85/54 100 01/22/18 09:00 78 16 93 01/22/18 08:33 91 20 95 01/22/18 08:30 98.8 F 97 19 117/58 91 01/22/18 08:25 95 Lactic Acid: 01/22/18 08:47 Lactic Acid 1.3 Exceptions to Standard of Care: pt has rales at b/l bases, will stop IVF - Cardiopulmonary Exam Capillary Refill: Immediate Respiratory: Symmetrical Chest Expansion and Respiratory Effort, - - rales at bases. rhonchi b/l mid lungs - Peripheral Pulse Exam Radial Pulses: Bilateral Normal Pedal Pulses: Bilateral Normal Posterior Tibial Pulse: Bilateral Normal Femoral Pulses: Bilateral Normal Popliteal Pulses: Bilateral Normal - Skin Exam Skin Exam: Normal Turgor - [place] Coma Scale Best Eye Response: 4 - Spontaneous Best Motor Response: 6 - Obeys Commands Best Verbal Response: 5 - Oriented Coma Scale Total: 15 Assess/Plan/Problems-Billing Assessment:
[2018-01-22] MEDS: Atorvastatin* 10 MG TAB PO SCH (17:39)
[2018-01-22] MEDS: ZOSYN 3.375 GM Q8H per EXTENDED INFUSION IVPB SCH ×2 (17:39)
--- NOTE | 2018-01-22 20:33 | HP ---
CC: Dr. Kim; Dr. Adames; Dr. Rea; Dr. Ku * HISTORY AND PHYSICAL: DATE OF ADMISSION: 01/22/18 PRIMARY CARE PROVIDER: Dr. Kim. CHIEF COMPLAINT: Left-sided weakness. HISTORY OF PRESENT ILLNESS: Mr. Mancia is a 67-year-old male with history of status post left neck dissection for tonsillar cancer. The patient also underwent radiation and chemotherapy for the cancer. Subsequently, he developed trismus and has had chronic problems with swallowing. He also has history of severe carotid artery disease with recently noted occluded right internal carotid artery that had been followed by Dr. De Souza. The patient's brought him to the emergency department today with concerns for generalized weakness, lethargy, and worsening of his chronic left-sided weakness. The patient has history of ischemic stroke in May 2017 and subsequent mild left-sided weakness due to that. She also noted that yesterday he complained of left-sided chest pain localized to the left lower edge of his rib cage and had 1 episode of bowel incontinence with large and liquid stool. She also had noticed that the patient had been spitting up and coughing up a lot. The patient himself stated that he has been coughing up phlegm for several days. He had had decreased appetite for several days also. His left-sided chest pain that occurred yesterday resolved. Initially, the patient was evaluated due to his neuro symptoms for acute stroke , but later on it was noted that the patient likely is septic from aspiration pneumonia and the left-sided weakness may be his old left-sided deficit that is unmasked now by the acute disease. Nevertheless, the patient is going to be admitted with diagnosis of left-sided hemiparesis as well as sepsis due to pneumonia, likely aspiration. PAST MEDICAL HISTORY: 1. History of hypertension. 2. History of atrial fibrillation. 3. History of tonsillar cancer, status post left neck dissection, chemotherapy and radiation. 4. History of CHF. 5. Coronary artery stenosis on the right noted on carotid Doppler studies on to have complete occlusion of internal carotid on the right as well as bilateral vertebrals. 6. History of wisdom teeth removal. 7. History of PEG tube insertion and discontinuation in the past. 8. History of chronic dysphagia. 9. As a consequence of the patient's job, the patient is blind in right eye. 10. The patient also noted that he was evaluated for his coronary artery stenosis in May of 2017 at [facility] and was noted at that point to have complete occlusion of the right internal carotid artery. He was also not considered for surgery due to his extensive postradiation changes on his neck. Since then, he had been followed by Dr. De Souza. MEDICATIONS: 1. MS Contin 15 mg b.i.d. 2. Nystatin containing compound mouthwash rinse and swallow 4 times a day. 3. Multaq 400 mg daily. 4. Lipitor 10 mg daily. 5. Eliquis 5 mg b.i.d. 6. Timolol eye drops, 1 drop to right eye b.i.d. ALLERGIES: No known drug allergies. SOCIAL HISTORY: The patient has history of smoking 1 to 2 packs per day for over 25 years and he quit in 2016. He does not drink alcohol or use drugs. 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 He is and his is his surrogate. REVIEW OF SYSTEMS: The patient is a rather poor historian. He did not notice any fevers or chills. He had been coughing up phlegm for the past several days. His left-sided chest pain resolved yesterday. Since his episode of stool incontinence yesterday, he did not have any further bowel movements. He denies any abdominal pain. He denies shortness of breath. His noted that they have not been following the recommendations of thickening the patient's food in the past several weeks at least. All the remaining 12 systems were reviewed with the patient and the patient's and were otherwise negative. PHYSICAL EXAMINATION GENERAL: The patient is a pleasant 67-year-old male, who is in no acute distress. Alert, awake, and oriented x3. VITAL SIGNS: Blood pressure of 94/61, heart rate of 81 and regular, respiratory rate 16, oxygen saturation 90% on room air, temperature of 98.8. HEENT: Head: Atraumatic, normocephalic. Eyes: Pupils are uneven with left pupil being reactive to light. The right pupil is fixed, rather dilated approximately 5 mm with what appears to be opacification noted in the pupil. Oropharynx clear. Mucosa dry. Trismus noted. NECK: Supple, status post left neck dissection with hardened skin and nodular abnormalities noted as a consequence of radiation. No palpable lymph nodes. RESPIRATORY: Rhonchi in bilateral bases, right more than left. ABDOMEN: Soft, nontender. Bowel sounds are present in all 4 quadrants. EXTREMITIES: There is no edema. Pulses are +2 bilaterally. No clubbing or cyanosis. NEUROLOGIC: On neuro evaluation, the patient's speech is rather clear, may be mildly dysarthric words, which as per the patient's is chronic. The patient has left-sided facial droop, mild which is also chronic as per the patient's . He has minimally decreased strength in the left handgrip, also chronic. His left leg is also weaker at 4+/5 comparing with the right leg and is also chronic. The patient at baseline apparently walks with a limp on the left side due to his chronic mild left-sided hemiparesis. SKIN: On evaluation of the skin, no ecchymotic areas or rashes noted. DIAGNOSTIC STUDIES/LAB DATA: Showed a white blood cell count of 13.7, hemoglobin of 12.4, hematocrit of 37, and platelets of 227. WBC differential included 16% of bands. Sodium was 127, potassium 4.1, chloride 96, carbon dioxide 24, BUN 18, creatinine 1.51. Liver function tests unremarkable. Troponin of 0.01. Lactic acid of 1.3. Cholesterol profile showed LDL cholesterol of 32. CT angiogram of the head and neck obtained at admission showed interval occlusion of the right common carotid artery origin, narrowing at the brachiocephalic trunk extending to the right internal carotid artery. There is partial reconstruction of the petrous and cavernous portion of the right internal carotid artery with reconstruction of the supraclinoid right internal carotid artery. This appears acute to subacute. The right subclavian artery is patent distally. Again, noticed occlusion versus high-grade stenosis of the proximal right vertebral artery with distal reconstitution. There is high- grade also stenosis of the left vertebral artery. There is atherosclerosis of the left carotid bifurcation without left internal carotid artery stenosis. There is facial soft tissue thickening on the left anterior neck, which may be related to treatment of his tumor. There had been an internal development of mild compression deformity of T1 without osseous retropulsion. Again, noted is moderate narrowing of the mid portion of the basilar artery. Brain CT showed no acute changes. The patient's portable chest x-ray, impression: "Right greater than left basilar consolidation." The patient's EKG showed sinus tachycardia with a heart rate of 91 beats per minute with non-specific ST changes in lateral leads. ASSESSMENT AND PLAN: 1. A 67-year-old male with history of right carotid occlusion and bilateral vertebral occlusions with residual to a stroke from May 2017, weakness on the left side presents with worsening of his left weakness. At this point, I suspect the worsening of his left-sided weakness is due to his dehydration and pneumonia and not a new stroke. Dr. Ku kindly evaluated the patient in the emergency department. At this point, the recommendation is to repeat CT today at 4 p.m. An MRI is going to be obtained in the morning since we are unable to obtain nonemergent MRI during the weekend time. The patient is going to be placed on telemetry monitored bed. I also discussed with Dr. Ku, the patient' s apixaban is going to be continued. The patient is going to be placed on neuro checks every 4 hours. 2. The patient has acute kidney injury and sepsis with bandemia on his CBC as well as findings consistent with bilateral lower lobe pneumonia likely due to aspiration as per history. The patient is going to be placed on Zosyn. He already received intravenous fluid bolus in the emergency department and blood cultures are going to be obtained. At this point, I am going to place him a modified diet, on thickened liquids and soft solids. I will ask Speech Therapy for an official evaluation in the morning and bedside evaluation by registered nurse today. 3. The patient has a history of atrial fibrillation, currently is in normal sinus rhythm. His Multaq and Eliquis are going to be continued. 4. For DVT prophylaxis, the patient is going to be continued on Eliquis. 5. For his code status, the patient's code status is full and his surrogate is his . TIME SPENT: Approximately 75 minutes was spent on the admission of this patient , more than half of that time was spent [id number] with the patient during the interview and physical exam. [id number]/[facility] #: [id number] OBDULIO
[2018-01-22] MEDS ORDERED: Timolol 0.5% OPTH.SOL* BTL RIGHT EYE SCH (21:00)
[2018-01-22] MEDS: Morphine TAB Extended Release (*) 15 MG TAB.ER PO SCH (21:30)
[2018-01-22] MEDS: Apixaban* 5 MG TAB PO SCH (21:30)
[2018-01-22] MEDS: PTO Dorzolamide/Timolol OPTH (NF) 10 ML BOT RIGHT EYE SCH (21:31)
[2018-01-23] MEDS: ZOSYN 3.375 GM Q8H per EXTENDED INFUSION IVPB SCH ×6 (00:57→17:11)
--- NOTE | 2018-01-23 02:30 | CONS ---
CC: Dr. Kim; Dr. Adames; Dr. Rea * CONSULT REPORT: DATE OF CONSULT: 01/22/18 LOCATION: He was seen in the ER room 11. PRIMARY CARE PROVIDER: Dr. Kim. SAW HANDLE ASSEMBLER: Dr. Adames. ONCOLOGIST: Dr. Rea. CHIEF COMPLAINT: Left-sided weakness. HISTORY OF PRESENT ILLNESS: Mr. Mancia is a 67-year-old gentleman who has a history of atrial fibrillation, currently on Eliquis; hypertension; CHF; a history of left tonsillar cancer, status post radiation and chemotherapy, who was last seen by me in May of 2017. At that time, he presented to the hospital with onset of left face, arm, and leg weakness. At that time, he was noted to have a subacute stroke and critical narrowing of his right internal carotid artery. He was sent to [facility] emergently for stroke care and was treated with medical management. His notes that he had some residual left-sided face, arm, and leg numbness and tingling as well as weakness. Neck CTA in April of 2017 showed high- grade stenosis greater than 95 % stenosis of the right carotid bulb and proximal internal carotid artery appears similar with prior MRI study; occlusion of the proximal right vertebral artery with mid and distal segmental reconstituted, unchanged; moderate narrowing of the mid portion of the basilar artery, unchanged; soft tissue swelling present in the neck on the left, which may represent postsurgical and postradiation change. MRI on 05/16/17, the day that he was transferred, showed multiple punctate foci of restricted diffusion within the cortex and periventricular white matter in the right frontal and parietal lobes consistent with subacute nonhemorrhagic infarct. These appeared to be embolic in nature. The notes that his last normal was around 2100 last night. This morning, he got up and became very weak in the legs, was unable to stand and family noticed that his left-sided facial droop and weakness was worse. He apparently was on his way to the bathroom when he fell down. He had diarrhea at that time and he was able to get himself back up off the floor after 45 minutes. He does have history of tonsillar cancer and had some morphine last night around 2100. The ER reports that he was on Coumadin and Eliquis, although there is some confusion about this. His notes that whenever he gets tired or sick that he tends to have worsening of his left-sided weakness and this is not unlike previous decompensations. She notes that his speech also worsened. He reports having some difficulty with his swallowing over the past several weeks and has developed a cough with some chest pain when breathing. Review of his chest x- ray on admission today shows significant changes consistent with pneumonia. The patient denies any fevers or chills, but he has had some sputum. There has been no reported head trauma. He has chronic vision loss in the right eye due to cataract, but no new vision symptoms, no new speech symptoms, no new right- sided findings. He reports that he has otherwise been in his usual state of health, although he is very frustrated at his inability to do things. His does note that yesterday morning, he was out helping his son on car, but he was having difficulty getting around. He is followed by Dr. Rea as well as Dr. Adames. In the ER today, he had a carotid Doppler done on 01/03/18. At that time, it showed occlusion of the right internal carotid artery, which has developed compared to the previous CT examination of 04/20/17. He had elevated peak systolic velocities of the left internal carotid artery consistent with left internal carotid artery stenosis between 70% and 99%, which has progressed compared to the previous CT angiogram. No flow is identified within the right vertebral artery consistent with a right vertebral occlusion noted on the previous exam. No flow was identified within the proximal left vertebral artery , which is new compared to the previous CT exam. CTA in the ER tonight showed interval occlusion of the right common carotid artery origin, narrowing at the brachiocephalic trunk extending to the right internal carotid artery. There is partial reconstitution of the petrous and cavernous portions of the right internal carotid artery with reconstitution of the supraclinoid right internal carotid artery. This appears acute to subacute. The right subclavian artery is patent distally. Again noted is occlusion versus high-grade stenosis of the proximal right vertebral artery with distal reconstitution. There is high- grade ostial stenosis of the left vertebral artery. There is atherosclerosis of the left carotid bifurcation with left internal carotid artery stenosis by NASCET criteria. There is fascial thickening and soft tissue thickening along the left anterior neck, which may relate to treatment effect versus tumor. There has been interval development of mild compression deformity of T1 without osseous retropulsion. Again, noted is moderate narrowing of the mid portion of the basilar artery. CT scan in the ER showed no acute issues with chronic small vessel ischemic changes noted and right-sided infarcts, chronic in nature. [facility] was contacted and felt that he was not a candidate for a clot retrieval. The patient is noted to be on blood thinners and was not a candidate for tPA and his last known normal was greater than 6 hours prior to his presentation. The patient is being admitted for further evaluation and workup. PAST MEDICAL HISTORY: As noted above. PAST SURGICAL HISTORY: 1. His left neck surgery with dissection for cancer. 2. History of feeding tube insertion and removal for medication. 3. [place] teeth removal in the past. MEDICATIONS: Current medications listed at home include: 1. Morphine sulfate. 2. Multaq. 3. Atorvastatin. 4. Eliquis. 5. Timolol. ALLERGIES: No known drug allergies. FAMILY HISTORY: Mother with pulmonary hypertension and dad with stroke in his 40s. SOCIAL HISTORY: Previous smoker, but quit. He has a [id number] year history of smoking and quit in 2015, although he was sneaking cigarettes back in April of 2017. No alcohol use. 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 . REVIEW OF SYSTEMS: Review of systems in 14-organ systems as noted above in the HPI. He denies any headaches, fevers, chills, head trauma, loss of consciousness. He has had some shortness of breath with cough and sputum production and some chest pain bilaterally when he breathes. He has had a recent diarrhea. No constipation. No dysuria, frequency, or urgency reported. No muscle pain, but he notes generalized muscle weakness along with left-sided weakness. PHYSICAL EXAM: Vital Signs: Temperature of 98.8, pulse rate of 79, respiratory rate of 18, pulse ox 96% on room air, blood pressure 94/61 to 119/ 58. In general, he is a well-nourished, well-developed gentleman, sitting in his hospital bed. He is somewhat cantankerous, but easy to talk to. He does have dysarthric speech. His is at the bedside. HEENT: He is normocephalic , atraumatic. Sclerae are anicteric. Right pupil is clouded. Mucous membranes are moist. Oropharynx is clear. He has some petechial lesions in the back of his neck in the oropharynx. Neck is supple. There is no thyromegaly. No carotid bruits were appreciated. Chest: Clear to auscultation bilaterally. Cardiovascular: Regular rate and rhythm. At this point, no irregular rhythm is noted. Abdomen: Nontender, nondistended. Extremities: No clubbing, cyanosis, or edema. He does have hair loss in his lower extremities bilaterally. Skin is warm and dry. On neurologic examination, he is awake, alert. He is oriented x3. His speech is fluent with some moderate dysarthria. His recall of recent and remote events is intact. Mood is dysthymic. Affect is mood congruent. Cranial Nerves: His pupils, the right pupil is clouded and minimally reactive. Left pupil is reactive. He has light vision only in the right eye with good vision in the left eye. Extraocular muscles appeared to be intact, although he had some left gaze impersistence. Facial sensation is diminished to light touch and pinprick in the left face. He has a left lower facial droop noted. His tongue appears to be midline. His palate raises symmetrically. Sternocleidomastoid and trapezius appeared to be intact. Motor Exam: He spontaneously moves all extremities. Antigravity on the right side. He has 5/5 in the right upper and lower extremities proximally and distally and left upper extremity proximally, he has 4+/5 distally. He has 4+/5 in the hands. 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 He does have drift in the left upper extremity. The left lower extremity, he has 4+/5 proximally and distally with some drift as well. Tone is slightly increased in the right upper and lower extremities. His sensation is reduced by 20% to light touch and pinprick on the left arm and leg. DTRs were 2+ at the patella, absent at the ankles, equivocal Babinski, 1+ at the biceps, triceps, and brachioradialis equal. [id number] and rapid alternating movements were slow on the right, more difficult on the right. No tremors were noted, no resting tremors. Gait was not tested at this time. DIAGNOSTIC STUDIES/LAB DATA: Include a white count of 13.7, hemoglobin of 12.4 , hematocrit of 37, platelet count of 226. His INR was 1.26, PTT of 39.9. Chemistry: Sodium of 127, chloride of 96, creatinine of 1.51, lactic acid of 1.3. LDL of 32, HDL of 35.4. Urine: 1+ red blood cells, 1+ blood. Previous hepatitis panel negative for A, B, and C in July of 2017. Imaging: As noted above. Additionally, he had a chest x-ray, which showed right greater than left bibasilar consolidation. Brain CT repeat at 5 p.m. showed no acute intracranial pathology, stable chronic small vessel ischemic changes. ASSESSMENT AND PLAN: Mr. Mancia is a 67-year-old gentleman with a known history of atrial fibrillation, report on Eliquis with some confusion, ER reports Coumadin as well, but I only see Eliquis on his med list; a history of throat cancer, status post radiation and chemotherapy; history of hyperlipidemia ; hypertension; CHF; carotid stenosis with now right-sided occlusion and worsening cerebrovascular disease came to the hospital back in May of 2017 with acute stroke and was shifted to [facility] for management given the high-grade stenosis in the right internal carotid artery on the symptomatic side. He had a subsequent carotid ultrasound in December of 2017, which showed occlusion of the right carotid and CT angiogram today shows persistent occlusion of the right common carotid artery with partial reconstitution of the petrous and cavernous portions of the right internal carotid artery with reconstitution of the supraclinoid right internal carotid artery, which appears acute to subacute. He also has occlusion versus high- grade stenosis of the proximal right vertebral artery with distal reconstitution. He has high-grade ostial stenosis of the left vertebral artery as well as atherosclerotic disease of the left carotid and narrowing of the basilar artery as well. He was brought in to the hospital with worsening left- sided weakness and numbness. His states this typically happens when he gets ill. He has been not feeling well for the last few days, had an episode of diarrhea and came into the hospital dehydrated. After review of his studies and examination, I suspected the patient has had some worsening hypoperfusion related to underlying dehydration and low blood pressure along with some unmasking of his symptoms likely related to an underlying pneumonia. CT of the head shows no acute stroke. My suspicion for acute stroke is low given his findings. [facility] was consulted and felt that he was appropriate for medical management. 1. History of stroke. I will continue his Eliquis. He does have a history of atrial fibrillation with significant cerebrovascular disease. I see no strong evidence to point to a new stroke and I suspect that this is unmasking of old symptoms as well as some hypoperfusion related to dehydration. He has had some problem swallowing of late and he is going to have a swallowing study scheduled for tomorrow. He also has a history of laryngeal cancer. He is a nonsmoker. His LDL cholesterol appears to be well controlled on a statin. I would maximize his blood pressure at this point to increase perfusion. Plan is to get an MRI in the morning to look for any new strokes. He will be monitored on telemetry for his atrial fibrillation. He has been managed on Eliquis for his cerebrovascular disease. Given his significant stenosis and cerebrovascular disease, I would continue his aspirin as well as the Eliquis. Echo can be considered. 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 2. Pneumonia. He will be followed for this by his primary team. Antibiotics as necessary. I would watch for any fevers and treat those aggressively. 3. History of throat cancer. He does take morphine for that. I would use this judiciously to avoid any changes in mental status. I will be signing off tomorrow at 7 a.m. and I will sign off the case to Dr. Macias, who will continue to follow. Thank you for the opportunity to participate in his care. [id number]/[facility] #: [id number] OBDULIO
[2018-01-23 08:03] LABS: ABS Basophils 0 10^3/ul (0-0.2); ABS Eosinophils 0 10^3/ul (0-0.6); ABS Lymphocytes 1.1 10^3/ul (1.0-4.8); ABS Neutrophils 13.2 10^3/ul (1.5-7.7); ABS Nucleated RBC 0 10^3/ul; Eosinophil % 0.1 %; Hematocrit 33 % (42-52); Hemoglobin 11.2 g/dl (14.0-18.0); Lymphocyte % 7.1 %; Mean Corpuscular HGB Conc 34 g/dl (31-36); Mean Corpuscular Hemoglobin 30 pg (27-31); Mean Corpuscular Volume 88 fL (80-94); Mean Platelet Volume 7.1 fL (7.4-10.4); Nucleated Red Blood Cells % 0; Platelet Count 198 10^3/ul (150-450); Red Cell Distribution Width 14 % (10.5-15); White Blood Count 15.3 10^3/ul (3.5-10.8)
[2018-01-23] MEDS: PTO Dorzolamide/Timolol OPTH (NF) 10 ML BOT RIGHT EYE SCH ×2 (08:07→21:25)
[2018-01-23] MEDS: Dronedarone TAB* 400 MG PO SCH (08:07)
[2018-01-23] MEDS: Morphine TAB Extended Release (*) 15 MG TAB.ER PO SCH ×2 (08:07→21:20)
[2018-01-23] MEDS: Apixaban* 5 MG TAB PO SCH ×2 (08:07→21:21)
[2018-01-23] MEDS: [UNRECOGNIZED DRUG - OTHER] SWISH SPIT SCH ×4 (08:08→21:23)
[2018-01-23 08:20] LABS: EGFR Non-African American 101.4 (>60)
[2018-01-23] MEDS ORDERED: NS 0.9% 1000 ML* 1,000 ML IV SCH (15:30)
--- NOTE | 2018-01-23 15:55 | PN ---
Subjective Date of Service: 01/23/18 Interval History: Pt feels well and wants to go home. cough is resolving. OK'd for soft solids and thin liquids by speech therapy Objective Active Medications: Acetaminophen (Tylenol Tab*) 650 mg PO Q4H PRN PRN Reason: FEVER/PAIN Apixaban (Eliquis*) 5 mg PO BID [facility] Last Admin: 01/23/18 08:07 Dose: 5 mg Atorvastatin Calcium (Lipitor*) 10 mg PO QPM [facility] Last Admin: 01/22/18 17:39 Dose: 10 mg Dorzolamide/Timolol (Cosopt (Nf)) 1 drop RIGHT EYE BID [facility] Last Admin: 01/23/18 08:07 Dose: 1 drop Dronedarone (Multaq Tab*) 400 mg PO DAILY [facility] Last Admin: 01/23/18 08:07 Dose: 400 mg Piperacillin Sod/Tazobactam (Sod 3.375 gm/ Sodium Chloride) 100 mls @ 25 mls/ hr IVPB Q8H [facility] Last Admin: 01/23/18 08:06 Dose: 25 mls/hr Sodium Chloride (Ns 0.9% 1000 Ml*) 1,000 mls @ 75 mls/hr IV PER RATE [facility] Stop: 01/24/18 04:49 Morphine Sulfate (Morphine Vial*) 2 mg IV Q4H PRN PRN Reason: PAIN - MILD Morphine Sulfate (Ms Contin(*)) 15 mg PO BID [facility] Last Admin: 01/23/18 08:07 Dose: Not Given Pto Med* (Tetr/Hc/ (Nyst/Dithen 2 Teasp)) 2 teasp SWISH SPIT QID [facility] Last Admin: 01/23/18 14:32 Dose: Not Given Pharmacy Consult (Zosyn Per Pharmacy*) 1 note FOLLOW UP .ZOSYN PER PHARMACY [facility] Vital Signs - 8 hr 01/23/18 01/23/18 08:00 15:12 Temperature 98.7 F Pulse Rate 66 Respiratory 20 18 Rate Blood Pressure 124/59 (mmHg) O2 Sat by Pulse 92 100 Oximetry Oxygen Devices in Use Now: None Appearance: 67 yo M in NAD, aAOx2, poor historian Eyes: No Scleral Icterus, PERRLA Ears/Nose/Mouth/Throat: NL Teeth, Lips, Gums, Mucous Membranes Moist Neck: NL Appearance and Movements; NL JVP, Trachea Midline Respiratory: Symmetrical Chest Expansion and Respiratory Effort, - - bibasiliar rhonchi Cardiovascular: NL Sounds; No Murmurs; No JVD, RRR Abdominal: NL Sounds; No Tenderness; No Distention, No Hepatosplenomegaly Lymphatic: No Cervical Adenopathy Extremities: No Edema, No Clubbing, Cyanosis Skin: No Rash or Ulcers, No Nodules or Sclerosis Neurological: Alert and Oriented x 3, - - mild dysarthia, trismus noted, mild left facial droop -improved from prior, L leg at 4+/5, L UE 4+/5 Result Diagrams: 01/23/18 07:35 01/23/18 07:35 Microbiology and Other Data: Microbiology 01/22/18 12:50 Aerobic Blood Culture - Preliminary Blood Venous No Growth Day 1 Anaerobic Blood Culture - Preliminary No Growth Day 1 01/22/18 10:37 Urine Culture - Final Urine Assess/Plan/Problems-Billing Assessment: 67 yo M with h/o R carotid artery occlusion , CVA subsequent left sided weakness, tonsilar ca (s/p left neck dissection, radiation tx, subsequent trismus) who presented with severe sepsis due to PNA and worsening left sided weakness - Patient Problems (1) CVA (cerebral vascular accident) Comment: MRi shows watershed infarcts in R MCA territory likely related to hypoperfusion due to sepsis. will cont mild IVF for now. D/w Dr. Macias, cont Eliquis (2) Severe sepsis Comment: With subsequent watershed CVA and TALIA due to aspiration PNA (3) Aspiration pneumonia Comment: swallow eval done, modified diet started cont Zosyn, resolving (4) A-fib Comment: currently in NSR, cont telem, Multaq, Eliquis (5) Hyponatremia Comment: acute due to dehydration /on chronic (6) DVT prophylaxis Comment: Eliquis Status and Disposition: Inpatient
[2018-01-23] MEDS: Atorvastatin* 10 MG TAB PO SCH (17:11)
--- NOTE | 2018-01-23 18:11 | CONS ---
NEUROLOGY FOLLOWUP NOTE: DATE OF FOLLOWUP: 01/23/18 LOCATION: He is in room 448. HOSPITALIST: Dr. Calixto. CHIEF COMPLAINT: Sepsis, worsened left-sided weakness. INTERVAL HISTORY: Since yesterday, Mr. Mancia feels well and wants to go home. He says he was up walking and feels fine. He does not feel that his left- sided weakness is any worse than usual. MEDICATIONS: Reviewed and he is on: 1. Eliquis 5 mg p.o. b.i.d. 2. Atorvastatin 10 mg p.o. q.p.m. 3. Cosopt 1 drop o.d. b.i.d. 4. Multaq 400 mg p.o. daily. 5. Morphine sulfate 15 mg p.o. b.i.d. 6. Zosyn pharmacy dosed. 7. Acetaminophen p.r.n. fever. PHYSICAL EXAMINATION: He is well nourished and currently well hydrated. Most recent temperature 98.7 temporally, blood pressure 124/59, heart rate 66 and regular. Respiratory rate 18, oxygen saturation is 100% on room air. His lowest blood pressure since he came in was 85/54, lowest yesterday was 94/61. Neurologically, speech is dysarthric and often unintelligible. Facial musculature notable for a flattening of the left nasolabial fold. He has a left pronator drift and clumsiness of left hand with finger taps. He has a spastic catch in the left leg and clumsiness in the left leg, but antigravity strength. He has good strength on the right side. DIAGNOSTIC STUDIES/LAB DATA: Laboratory data reviewed includes an MRI the brain , which reveals several small acute infarctions in a right watershed district. There are also old infarctions mainly in the right hemisphere. CT angiogram of the head and neck reveals an occlusion of the right proximal internal carotid artery. There is also occlusion of the right vertebral as well as basilar stenosis. Other laboratory data notable for white blood cell count down to 15.3, hemoglobin 11.2, platelet count 198,000. Chemistries notable for sodium up to 130, creatinine is back to normal at 0.77. IMPRESSION: Impression is that of watershed infarctions in the setting of hypotension. He has a right carotid occlusion. I see no role for additional antiplatelet or anticoagulants other than the Eliquis he is currently on. The emphasis should be on maintaining hydration and adequate cerebral perfusion pressure. He is not a candidate for a carotid procedure. We will sign off on the case at this point in time. [id number]/[facility] #: [id number] O[facility]
[2018-01-24] MEDS: ZOSYN 3.375 GM Q8H per EXTENDED INFUSION IVPB SCH ×4 (00:22→09:05)
[2018-01-24] MEDS ORDERED: Magic M W2 Ben/Maal/Nyst/Lido* 240 ML MOUTHWASH (alt formulation) SWISH SPIT ONE (02:58)
[2018-01-24 06:26] LABS: ABS Basophils 0 10^3/ul (0-0.2); ABS Eosinophils 0 10^3/ul (0-0.6); ABS Lymphocytes 1.3 10^3/ul (1.0-4.8); ABS Monocytes 0.7 10^3/ul (0-0.8); ABS Neutrophils 7.7 10^3/ul (1.5-7.7); ABS Nucleated RBC 0 10^3/ul; Eosinophil % 0.3 %; Hematocrit 32 % (42-52); Hemoglobin 11.4 g/dl (14.0-18.0); Lymphocyte % 13.1 %; Mean Corpuscular HGB Conc 35 g/dl (31-36); Mean Corpuscular Hemoglobin 31 pg (27-31); Mean Corpuscular Volume 87 fL (80-94); Nucleated Red Blood Cells % 0; Platelet Count 202 10^3/ul (150-450); Red Blood Count 3.72 10^6/ul (4.00-5.40); Red Cell Distribution Width 14 % (10.5-15); White Blood Count 9.6 10^3/ul (3.5-10.8)
[2018-01-24 06:41] LABS: EGFR Non-African American 127.8 (>60)
[2018-01-24] MEDS: Dronedarone TAB* 400 MG PO SCH (09:05)
[2018-01-24] MEDS: Apixaban* 5 MG TAB PO SCH (09:05)
[2018-01-24] MEDS: Morphine TAB Extended Release (*) 15 MG TAB.ER PO SCH (09:05)
[2018-01-24] MEDS: PTO Dorzolamide/Timolol OPTH (NF) 10 ML BOT RIGHT EYE SCH (09:06)
[2018-01-24] MEDS: [UNRECOGNIZED DRUG - OTHER] SWISH SPIT SCH ×2 (09:11→13:33)
[2018-01-24 14:37] VITALS: BP 113/55
--- NOTE | 2018-01-24 22:27 | DS ---
CC: Dr. Kim; Dr. Rea; Dr. De Souza; Dr. Estrada; Dr. Macias; Dr. Ku.* DISCHARGE SUMMARY: DATE OF ADMISSION: 01/22/18. DATE OF DISCHARGE: 01/24/18. PRIMARY CARE PROVIDER: Dr. Kim. DISCHARGE DIAGNOSES: 1. Severe sepsis due to aspiration pneumonia due to patient's chronic dysphagia. 2. Acute kidney injury due to severe sepsis. 3. Hyponatremia due to dehydration. 4. Acute watershed right hemispheric cerebrovascular accident likely due to hypoperfusion when septic. SECONDARY DIAGNOSES: 1. 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 2. History of hypertension. 3. History of atrial fibrillation. 4. Congestive heart failure. 5. History of carotid artery stenosis with possible right carotid occlusion as well as bilateral vertebral artery occlusion. 6. [place] teeth removal. 7. History of PEG tube insertion and discontinuation in the past. 8. 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 MEDICATIONS AT DISCHARGE: Include: 1. Apixaban 5 mg b.i.d. 2. Lipitor 10 mg daily. 3. Compound mouth wash that includes Nystatin as previously taken p.r.n. 4. Timolol eye drops 0.5% one drop right eye b.i.d. 5. Augmentin 875 mg b.i.d. for a total of 5 days. 6. Multaq 400 mg daily. 7. Morphine sulfate 15 mg b.i.d. CONSULTANTS DURING THE HOSPITALIZATION: Include Dr. Macias from Neurology. Dr. Ku. DIAGNOSTIC STUDIES/LABORATORY DATA: Studies performed during the hospital stay included: On 01/24/18, white blood cell count of 9.6, hemoglobin 11.4, hematocrit of 32 and platelets of 202. Sodium was 130, potassium 3.8, chloride 100, carbon dioxide 24, BUN 7, creatinine 0.6. Microbiology studies show negative urine cultures and negative blood cultures. Sputum cultures are pending and so far has been positive for polymicrobial organisms including Gram-positive bacilli and cocci and Gram-negative bacilli. Brain MRI obtained on 01/24/18: Impression: "Small foci of restricted diffusion within the right posterior frontal and anterior parietal lobe in parasagittal distribution. The appearance suggestive of watershed versus embolic nonhemorrhagic infarct. There is multifocal encephalomalacia predominant within the right parasagittal distribution as well concerning for chronic watershed infarcts. This has developed compared to the May 2017 evaluation." Brain CT last obtained on 01/22/18: Impression: "Stable right chronic small vessel ischemic change and stable multifocal remote infarct of the right cerebral hemisphere." CTA of the head obtained on 01/22/18: Impression: "There has been interval occlusion of the right common carotid artery origin, narrowing at the brachiocephalic trunk extending into the right internal carotid artery. There is a partial reconstitution of the petrous and cavernous portions of the right internal carotid artery with reconstitution of the supraclinoid right internal carotid artery. This appears to be acute and subacute. The right subclavian artery is patent distally. Again, noticed occlusion versus high-grade stenosis of the proximal right vertebral artery with distal reconstitution. There is high-grade ostial stenosis of the left vertebral artery. There is atherosclerosis of the left carotid bifurcation without left internal artery stenosis. There is facial thickening of soft tissue thickening along the left anterior neck, which may be related to treatment effect versus tumor. There has been interval development of mild compression deformity of T1 without osseous retropulsion. Again, noted is a moderate narrowing of the mid portion of the basilar artery." Patient's chest x-ray noted on 01/22/18. Impression: "Right greater than left basilar consolidation. Recommend follow up on to resolution to exclude underlying pulmonary parenchymal pathology." HOSPITALIZATION COURSE: Lilliam Mancia is a 67-year-old male with history of chronic dysphagia and trismus due to tonsillar cancer as well as peripheral vascular disease with carotid artery stenosis on the right. Patient has a history of ischemic stroke in May 2017 from which he had a residual mild left- sided weakness. As per patient's , patient's baseline is "limping on the left side." His left arm is also weak. Patient also is noted by his to have mild facial droop whenever he is tired or "under the weather." The patient originally was presented to the hospital as "code gonzales." He had worsening of his chronic left-sided weakness. Furthermore, it was also noted that patient had an episode of diarrhea prior to presentation as well as had been coughing with green sputum production for several days. Patient was noted to be dehydrated with acute kidney injury and septic. His chest x-ray showed bilateral lower lobe infiltrates likely due to aspiration from patient's history. At this point, it was suspected that the patient's presentation originated from severe sepsis due to aspiration pneumonia and subsequent neurologic deficit is likely related to that. It was noted on the MRI that the patient has in fact watershed infarcts from hypoperfusion of his right side of the brain. Patient has a history of known right carotid artery stenosis and bilateral vertebral artery basically occlusion. At this point at admission, patient was consulted with the [facility] and was deemed not to be a good candidate for vascular procedure. Especially that later on it was noted that his infarcts were from hypoperfusion and sepsis and not related per se to his carotid occlusion. Patient was admitted to the hospital, treated with Zosyn with good results. By the time of discharge, he continues to be on room air. He still continued on spitting of sputum but started clearing up in color. His cough nearly resolved. He underwent swallow evaluation and was noted to be okay for soft food with lots of gravy and thin liquids without straws. Patient himself together with his noted that he was not very compliant with the recommendations of modified diet prior to his presentation to the ED. Physical therapy evaluated the patient and deemed the patient to be cleared to go home. By the time of discharge, his left-sided deficit was nearly close to his baseline. He is going to complete his antibiotics with Augmentin at home and he is recommended to follow up with his primary care provider in approximately 4 to [address] Macias's recommendation, patient's anticoagulation was unchanged and Eliquis is going to be continued for his history of paroxysmal atrial fibrillation. Patient will remain in sinus rhythm throughout his hospital stay. PHYSICAL EXAMINATION: At the time of discharge, blood pressure 142/61, heart rate of 67, regular, respiratory rate 14, oxygen saturation 92% on room air, temperature 98.1. General: The patient is a very pleasant 67-year-old male with slight dysarthria who is not in acute distress. Patient is alert and oriented x3. His is very poor historian, though. HEENT: Head: Atraumatic, normocephalic. Eyes: Pupils are uneven with right pupil being wide, nonreactive with opacification noted inside patient's orbit, which is chronic. The left pupil is reactive to light. Oropharynx clear. Mucosa moist. Noted poor dentition and trismus. Neck: Supple. No JVD. No bruits bilaterally. Positive for postradiation changes and skin hardening on the left side. Respiratory: Bibasilar rhonchi still noted. Cardiovascular: Regular rate and rhythm. No murmurs. Abdomen: Soft, nontender. Bowel sounds present in all 4 quadrants. Extremities: There is no edema. Pulses are +2. No clubbing or cyanosis. On neuro evaluation, speech mildly dysarthric, but easy to understand. Patient is noted to have very mild left-sided facial droop. He is unable to stick out his tongue due to trismus and combination with postradiation changes to his oral cavity. The left arm is minimally weaker distally. The left leg is 4+/5 and 5/5 on the right leg. Sensation is grossly intact. Please note that this is a short summary of the patient's hospital stay. Please refer to further medical records for details. TIME SPENT: Approximately 45 minutes was spent on the patient's discharge. [id number]/[facility] #: [id number] [facility]
== END 2018-01-24 14:35 | disposition home or self-care (01) | DRG 871 ==
LOC: ED 08:22 → MEDTELE 12:29
PROVIDERS: ADMIT Internal Medicine; ATTEND Internal Medicine
DX: A41.01 Sepsis due to Methicillin susceptible Staphylococcus aureus (principal); J69.0 Pneumonitis due to inhalation of food and vomit; I63.89 Other cerebral infarction; N17.9 Acute kidney failure, unspecified; E87.1 Hypo-osmolality and hyponatremia; I69.354 Hemiplegia and hemiparesis following cerebral infarction affecting left non-dominant side; A41.52 Sepsis due to Pseudomonas; R65.20 Severe sepsis without septic shock; I95.9 Hypotension, unspecified; I11.0 Hypertensive heart disease with heart failure; I48.91 Unspecified atrial fibrillation; I50.9 Heart failure, unspecified; R13.19 Other dysphagia; I65.21 Occlusion and stenosis of right carotid artery; E86.0 Dehydration; R25.2 Cramp and spasm; H54.40 Blindness, one eye, unspecified eye; R47.1 Dysarthria and anarthria; E78.5 Hyperlipidemia, unspecified; I73.9 Peripheral vascular disease, unspecified; Z85.89 Personal history of malignant neoplasm of other organs and systems; Z92.21 Personal history of antineoplastic chemotherapy; Z92.3 Personal history of irradiation; Z79.01 Long term (current) use of anticoagulants; Z79.891 Long term (current) use of opiate analgesic; Z79.899 Other long term (current) drug therapy; Z87.891 Personal history of nicotine dependence; Z82.3 Family history of stroke; Z82.49 Family history of ischemic heart disease and other diseases of the circulatory system
CPT/HCPCS: 36415; 70450; 70496; 70498; 70551; 71045; 80048; 80053; 80061; 81003; 81015; 83605; 84484; 85025; 85610; 85730; 86850; 86900; 86901; 87040; 87070; 87077; 87086; 87186; 87205; 93005; 99284; A9270-GY; G8978-GP-CI; G8979-GP-CI; G8980-GP-CI; G8987-GO-CI; G8988-GO-CI; G8989-GO-CI; J2543; Q9967

== ENCOUNTER 2018-12-16 11:03 | Inpatient (IN) | payer MEDICARE, OTHER ==
--- NOTE | 2018-12-16 11:52 | ED ---
Respiratory - HPI Summary HPI Summary: This patient is a 68 year old male accompanied by his presenting to [facility] with RLQ pain. He states he has a Hx of aspiration pneumonia which he had after tonsil cancer. He states he feels general weakness. His states he had nausea and vomited 4-5 days ago, has not had nausea since. His last normal BM was last night. His states he is having differences in speech secondary to throat cancer but this has become worse since this started. He had a CT scan [address] Rea who states there was possible pneumonia and gallbladder changes per his . Medications reviewed, allergies noted. . 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 Onset/Duration: Lasting Days Pain Intensity: 10 - Allergy/Home Medications Allergies/Adverse Reactions: Allergies Allergy/AdvReac Type Severity Reaction Status Date / Time No Known Allergies Allergy Verified 11/20/18 13:22 Home Medications: Home Medications Dronedarone TAB* [Multaq TAB*] 400 mg PO BID 12/16/18 [History Confirmed ] Pilocarpine TAB (NF) 5 mg PO TID 12/16/18 [History Confirmed 12/16/18] traMADol TAB* [Ultram*] 50 mg PO Q8H PRN 12/16/18 [History Confirmed 12/16/18] PMH/Surg Hx/FS Hx/Imm Hx Endocrine/Hematology History: Denies: Hx Diabetes Cardiovascular History: Reports: Hx Congestive Heart Failure, Hx Hypertension, Other Cardiovascular Problems/Disorders - HX OF MINI STROKE Denies: Hx Pacemaker/ICD Respiratory History: Reports: Hx Pulmonary Embolism - march 2016 - resolved with Dr. Rea, Other Respiratory Problems/Disorders - HX THROAT CANCER, HX ASPIRATION PNEUMONIA TWICE Denies: Hx Asthma, Hx Chronic Obstructive Pulmonary Disease (COPD), Hx Sleep Apnea GI History: Reports: Other GI Disorders - peg tube Denies: Hx Ulcer History: Reports: Hx Renal Disease - hx abnormal gfr Denies: Hx Dialysis Musculoskeletal History: Reports: Hx Arthritis, Hx Orthopedic Injury - surgery bilat knee, Other Musculoskeletal History - recent right knee infection with aspiration / staph infection- resolved Sensory History: Reports: Hx Contacts or Glasses Denies: Hx Hearing Aid Opthamlomology History: Reports: Hx Contacts or Glasses Neurological History: Reports: Hx Transient Ischemic Attacks (TIA) Psychiatric History: Reports: Hx Substance Abuse - ETOH Denies: Hx Anxiety, Hx Depression, Hx Panic Disorder - Cancer History Cancer Type, Location and Year: TONSILLAR CA,tongue Hx Chemotherapy: Yes - stated last treatment were 2015 Hx Radiation Therapy: Yes - stated last treatment were in 2015 Hx Palliative Cancer Treatment: No - Surgical History Surgery Procedure, Year, and Place: Peg tube placed 12/2015, then removed; Left Neck Lymph nodes removed 2016 with radiation and chemo Hx Anesthesia Reactions: No Infectious Disease History: No Infectious Disease History: Reports: History Other Infectious Disease - staph rt knee Denies: Hx Hepatitis, Hx Human Immunodeficiency Virus (HIV), Hx Tuberculosis , Traveled Outside the [place] in Last 30 Days - Family History Known Family History: Positive: Hypertension, Diabetes, Other - stroke - Social History Alcohol Use: Weekly Alcohol Amount: 14 Hx Substance Use: No Substance Use Type: Reports: None Hx Tobacco Use: Yes Smoking Status (MU): Light Every Day Tobacco Smoker Type: Cigarettes Amount Used/How Often: 2 a day Length of Time of Smoking/Using Tobacco: 35 yrs Have You Smoked in the Last Year: Yes Review of Systems Negative: Fever Positive: Other - Changes in voice Positive: Abdominal Pain, Vomiting, Nausea Positive: Weakness All Other Systems Reviewed And Are Negative: Yes Physical Exam - Summary Physical Exam Summary: Constitutional: Well-developed, Well-nourished, Alert. (-) Distressed Skin: Warm, Dry HENT: Normocephalic; Atraumatic Eyes: Conjunctiva normal Neck: Musculoskeletal ROM normal neck. (-) JVD, (-) Stridor, (-) Tracheal deviation Cardio: Rhythm regular, rate normal, Heart sounds normal; Intact distal pulses; Radial pulses are 2+ and symmetric. (-) Murmur Pulmonary/Chest wall: Effort normal. (-) Respiratory distress, (-) Wheezes, (-) Rales Abd: Soft, Tednerness over the RLQ. (-) Distension, (-) Guarding, (-) Rebound Musculoskeletal: (-) Edema Lymph: (-) Cervical adenopathy Neuro: Alert, Oriented x3 Psych: Mood and affect Normal Triage Information Reviewed: Yes Vital Signs On Initial Exam: Initial Vitals Temp Pulse Resp BP Pulse Ox 97.7 F 104 18 160/85 92 12/16/18 11:11 12/16/18 11:11 12/16/18 11:11 12/16/18 11:11 12/16/18 11:11 Vital Signs Reviewed: Yes Procedures - Sedation Patient Received Moderate/Deep Sedation with Procedure: No Diagnostics - Vital Signs Vital Signs Temp Pulse Resp BP Pulse Ox 12/16/18 11:11 97.7 F 104 18 160/85 92 - Laboratory Result Diagrams: 12/16/18 11:58 12/16/18 11:58 Lab Statement: Any lab studies that have been ordered have been reviewed, and results considered in the medical decision making process. - Radiology CXR Radiology Interpretation Completed By: Radiologist Summary of Radiographic Findings: Right lower lung consolidation. Recommend follow-up until resolution to exclude underlying pulmonary parenchymal pathology. ED Provider has reviewed this report. - CT Abd/Pel CT Interpretation Completed By: Radiologist Summary of CT Findings: 1. Dilated retrocecal appendix with periappendiceal inflammatory change, consistent with acute appendicitis. There is a 2.4 cm loculated fluid collection along the hepatorenal recess consistent with periappendiceal abscess. 2. Centrilobular nodularity of the lung bases bilaterally suggestive of an airway eccentric inflammatory or infectious process. ED Provider has reviewed this report. Disposition - Course Course Of Treatment: Patient is here with one week of right sided abdominal pain. Patient was [place] hypotensive initially and was given a liter fluid. Patient had blood performed which showed a leukocytosis of 12. Patient CT scan which showed perforated appendicitis with an abscess. Surgery was called who wanted patient admitted to medicine. After patient was initially presented to medicine, patient became acutely worse with worsening blood pressure. Patient was given a second liter of IV fluid and started on levophed. Patient was admitted to the ICU after surgery and the ICU team evaluated patient at bedside - Diagnoses Provider Diagnoses: Perforated appendicitis, Shock, Hypotension, Abdominal pain - Physician Notifications Discussed Care Of Patient With: Al Rajput - Surgery Time Discussed With Above Provider: 15:29 - Recommends medical management at this time. Admit to medical floor. Instructed by Provider To: Admit As Inpatient - Critical Care Time Critical Care Time: 30-74 min - 60 Discharge ED - Sign-Out/Discharge Documenting (check all that apply): Patient Departure - Admission to ICU, accepted by Dr. Fowler, Conditioning Yard Supervisor - Discharge Plan Condition: Stable Disposition: ADMITTED TO [facility] - Billing Disposition and Condition Condition: STABLE Disposition: Admitted to [facility] - Attestation Statements Document Initiated by Ritesh: Yes Documenting Scribe: Radu Liao Provider For Whom Ritesh is Documenting (Include Credential): Gómez Guzman MD Scribe Attestation: Radu Castro, scribed for Gómez Guzman MD on 12/16/18 at 1945. Scribe Documentation Reviewed: Yes Provider Attestation: The documentation as recorded by the Radu bermudez accurately reflects the service I personally performed and the decisions made by me, Gómez Guzman MD Status of Scribe Document: Viewed
[2018-12-16] MEDS ORDERED: Morphine 4 MG/ML VIAL (1 ml) 4 MG/ML VIAL IV ONE (12:14)
[2018-12-16] MEDS ORDERED: NS 0.9% 1000 ML** 1,000 ML IV ONE ×2 (12:14→14:42)
[2018-12-16 12:16] LABS: ABS Lymphocytes 0.5 10^3/ul (1.0-4.8); ABS Monocytes 0.5 10^3/ul (0-0.8); ABS Neutrophils 11.4 10^3/ul (1.5-7.7); Hematocrit 35 % (42-52); Hemoglobin 11.8 g/dL (14.0-18.0); Lymphocyte % 3.7 %; Mean Corpuscular HGB Conc 34 g/dL (31-36); Mean Corpuscular Hemoglobin 30 pg (27-31); Mean Corpuscular Volume 88 fL (80-94); Platelet Count 269 10^3/uL (150-450); Red Blood Count 4.02 10^6 /uL (4.18-5.48); Red Cell Distribution Width 13 % (10-15); White Blood Count 12.4 10^3/uL (3.5-10.8)
[2018-12-16 12:27] LABS: ALT 15 U/L (7-52); AST 27 U/L (13-39); Albumin 3.8 g/dL (3.2-5.2); Albumin/Globulin Ratio 1.1 (1-3); Alkaline Phosphatase 154 U/L (34-104); Anion Gap 6 mmol/L (2-11); BUN/Creatinine Ratio 15.2 (8-20); Blood Urea Nitrogen 17 mg/dL (6-24); CO2 Carbon Dioxide 27 mmol/L (22-32); Calcium 9.2 mg/dL (8.6-10.3); Chloride 92 mmol/L (101-111); EGFR African American 79.4 (>60); EGFR Non-African American 65.6 (>60); Globulin 3.6 g/dL (2-4); Glucose 90 mg/dL (70-100); Potassium 4.3 mmol/L (3.5-5.0); Sodium 125 mmol/L (135-145); Total Protein 7.4 g/dL (6.4-8.9)
--- OUTSIDE RECORDS SUMMARY | 2018-12-16 12:46 | XMS REPORT | Continuity of Care Document ---
:1950 External Reference #:[id number] Author Name Jacques Zaidi MD Address [address] [place] [address] Care Team Providers Name Role Phone Dex Kim MD - Family Medicine Care Team Information Photographer Still Cyrus Millard M.D. Care Team Information Photographer Still [phone] Jennifer Goldstein M.D. Care Team Information Photographer Still [phone] Mahamed Cobb MD - Care Team Information Photographer Still [phone] Gastroenterology Rafael Adames MD - Spec/Tech, Care Team Information Photographer Still Cardiovascular [facility] Joy Care Team Information Photographer Still [phone] Harvey Koehler DMD - Dent[place]aro Care Team Information Photographer Still [phone] Problems Active Problems Provider Date Essential hypertension Nils Hollins M.D. 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 Social History Type Date Description Comments Sex Unknown Tobacco Use Start: Unknown End: Former Cigarette Smoker 1 x 30 yrs, quit age 65 Unknown 1/2 Packs Daily Tobacco Use Start: Unknown Never Smoked Cigars Tobacco Use Start: Unknown Never Smoked A Pipe Smokeless Tobacco Never Used Smokeless Tobacco ETOH Use Currently consumes 4 beers per day Tobacco Use Start: Unknown End: Patient is a former Unknown smoker Smoking Status Reviewed: 12/12/18 Patient is a former smoker Allergies, Adverse Reactions, Alerts Description No Known Drug Allergies Medications Active Medications SIG Qnty Indications Ordering Provider Date Multaq bid Dex Kim MD 400mg Tablets Multivitamin Adult as directed Dex Kim MD Tablets Aspirin Adult Low Dex Kim MD Strength 81mg Tablets DR Ochoa 1 by mouth twice a Unknown 5mg Tablets day Atorvastatin Calcium 1 by mouth every Unknown 20mg day Tablets Dorzolamide Unknown HCL/Timolol Maleate 22.3-6.8mg/ml Solution Lidocaine Viscous Unknown 2% Solution Pilocarpine HCL Unknown 7.5mg Tablets History Medications Ciprodex 4 drops in 15ml H71.02 Nils Dela Cruz 11/13/2018 - 0.3-0.1% left ear Natasha Hollins 12/11/2018 Suspension twice a day Immunizations Description No Information Available Vital Signs Date Vital Result Comment 12/12/2018 10:50am Weight 150.00 lb Weight 68.040 kg Height 67 inches 5'7" Height in cm's 170.2 cm BMI (Body Mass Index) 23.5 kg/m2 11/13/2018 2:05pm Weight 150.00 lb Weight 68.040 kg Height 67 inches 5'7" Height in cm's 170.2 cm BMI (Body Mass Index) 23.5 kg/m2 Results Description No Information Available Procedures Date Code Description Status 11/13/2018 39701 Binocular Microscopy Completed Medical Devices Description No Information Available Encounters Type Date Location Provider Dx Diagnosis Office Visit 12/12/2018 [place],After Jacques Bond85.819 Prsnl hx of kacey 10:30a 02/07/07 MD Dyan neoplm of unsp site lip,oral cav,& pharynx H71.02 Cholesteatoma of attic, left ear R13.14 Dysphagia, pharyngoesophageal phase Office Visit 11/13/2018 [place],After Nils [id number] Prsnl hx of 2:15p 02/07/07 Natasha Hollins neoplm of unsp site lip,oral cav,& pharynx H71.02 Cholesteatoma of attic, left ear H72.02 Central perforation of tympanic membrane, left ear Assessments Date Code Description Provider 12/12/2018 Z85.819 Personal history of malignant neoplasm Jacques Zaidi MD of unspecified site o 12/12/2018 H71.02 Cholesteatoma of attic, left ear Jacques Zaidi MD 12/12/2018 R13.14 Dysphagia, pharyngoesophageal phase Jacques Zaidi MD 11/13/2018 Z85.819 Personal history of malignant neoplasm Nils Hollins M.D. of unspecified site o 11/13/2018 H71.02 Cholesteatoma of attic, left ear Nils Hollins M.D. 11/13/2018 H72.02 Central perforation of tympanic Nils Hollins M.D. membrane, left ear Plan of Treatment Future Appointment(s):01/09/2019 10:00 am - Jacques Zaidi MD at [place], After 02/07/810 - Jacques Zaidi MDZ85.819 Personal history of malignant neoplasm of unspecified site oH71.02 Cholesteatoma of attic, left earR13.14 Dysphagia, pharyngoesophageal phase Functional Status Description No Information Available Mental Status Description No Information Available Referrals Description No Information Available
--- OUTSIDE RECORDS SUMMARY | 2018-12-16 12:46 | XMS REPORT | Continuity of Care Document ---
:1950 External Reference #:[id number] Author Name Aiden Freeman MD Address [facility] [place] [address] Care Team Providers Name Role Phone Dex Kim MD - Family Medicine Care Team Information Equal Opportunity Officer Problems Active Problems Provider Date Essential hypertension Nils Hollins MD Onset: 12/01/2015 Esophageal dysphagia Aiden Freeman MD Onset: 12/13/2018 Malfunction of gastrostomy tube Aiden Freeman MD Onset: 05/12/2017 Dysphagia Aiden Freeman MD Onset: 05/12/2017 Malignant tumor of tonsillar pillar Aiden Freeman MD Onset: 12/16/2015 Social History Type Date Description Comments Sex Unknown Tobacco Use Start: Unknown End: Unknown Patient is a former smoker Smoking Status Reviewed: 12/13/18 Patient is a former smoker Allergies, Adverse Reactions, Alerts Description No Known Drug Allergies Medications Active Medications SIG Qnty Indications Ordering Date Provider Multaq 1 by mouth twice a 180tabs Dex Kim, 400mg Tablets day Pilocarpine HCL 1 by mouth three Unknown 5mg times a day Tablets Atorvastatin Calcium TK 1 T PO Once D Unknown 20mg Tablets Eliquis TK 1 T PO bid Unknown 5mg Tablets Lidocaine Viscous Swish And Spit 5 Unknown HCL Milliliters By 2% Solution Mouth Four Times A Day If Needed Timolol Maleate Unknown 0.5% Solution Immunizations Description No Information Available Vital Signs Date Vital Result Comment 12/13/2018 8:03am Height 67 inches 5'7" Weight 150.25 lb BP Systolic 120 mmHg BP Diastolic 66 mmHg Heart Rate 78 /min BMI (Body Mass Index) 23.5 kg/m2 05/12/2017 1:11pm Height 67 inches 5'7" Weight 150.00 lb BP Systolic 130 mmHg BP Diastolic 80 mmHg Heart Rate 68 /min BMI (Body Mass Index) 23.5 kg/m2 Results Description No Information Available Procedures Description No Information Available Medical Devices Description No Information Available Encounters Description No Information Available Assessments Date Code Description Provider 12/13/2018 R13.14 Dysphagia, pharyngoesophageal phase Aiden Freeman MD Plan of Treatment 12/13/2018 - Aiden Freeman, MDR13.14 Dysphagia, pharyngoesophageal phaseNew Xrays:X-Ray, Esophogram w/ Barium Tablet, Ordered: 12/13/18Comments:I had a very long discussion with the patient and his regarding his dysphagia. We discussed possibilities of strictures rings eosinophilic esophagitis. His last endoscopy at which time I placed his PEG tube did not reveal any findings. 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 It would be less likely but could cause radiation strictures. Unfortunately he is high risk for any procedures. He just saw ENT yesterday who is hesitant to perform any type of procedures given hishigh risk status. I would like to begin his evaluation with a barium esophagram, given his high risk status and Eliquis use. If it shows something we may need to consider an EGD however his Eliquis use will have to be addressed, he sees a neurologist Dr. Louis at [facility]. This also may be related tohis stroke. He did have a CT chest abdomen pelvis with no esophageal pathology seen and a speech and swallow evaluation March 092018 which I will try to get the results of however his states was fairly unremarkable. They will call me after his barium esophagram Functional Status Description No Information Available Mental Status Description No Information Available Referrals Description No Information Available
--- OUTSIDE RECORDS SUMMARY | 2018-12-16 12:46 | XMS REPORT | Continuity of Care Document ---
:1950 External Reference #:[id number] Author Name Nils Hollins M.D. Address [address] [place] [address] Care Team Providers Name Role Phone Dex Kim MD - Family Medicine Care Team Information Oiler Helper [phone] Cyrus Millard M.D. Care Team Information Oiler Helper [phone] Jennifer Goldstein M.D. Care Team Information Oiler Helper [phone] Mahamed Cobb MD - Care Team Information Oiler Helper [phone] Gastroenterology Rafael Adames MD - Spec/Tech, Care Team Information Oiler Helper Cardiovascular Lopez Joy Care Team Information Oiler Helper [phone] Harvey Koehler DMD - [place] Care Team Information Oiler Helper [phone] Problems Active Problems Provider Date Essential hypertension [...] a former Unknown smoker Smoking Status Reviewed: 11/13/18 Patient is a former smoker Allergies, Adverse Reactions, Alerts Description No Known Drug Allergies Medications Active Medications SIG Qnty Indications Ordering Provider Date Ciprodex 4 drops in left 15ml H71.02 Nils Dela Cruz 11/13/2018 0.3-0.1% ear twice a day Natasha Hollins Suspension Multaq bid Dex Kim MD 400mg Tablets Multivitamin Adult as directed Dex Kim MD Tablets Aspirin Adult Low Dex Kim MD Strength 81mg Tablets DR Ochoa 1 by mouth twice a Unknown 5mg Tablets day Atorvastatin Calcium 1 by mouth every Unknown 20mg day Tablets Lidocaine HCL 1 table spoon by Unknown 2% Solution mouth twice daily swish and spit Dorzolamide Unknown HCL/Timolol Maleate 22.3-6.8mg/ml Solution Lidocaine Viscous Unknown 2% Solution Pilocarpine HCL Unknown 7.5mg Tablets Immunizations Description No Information Available Vital Signs Date Vital Result Comment 11/13/2018 2:05pm Weight 150.00 lb Weight 68.040 kg Height 67 inches 5'7" Height in cm's 170.2 cm BMI (Body Mass Index) 23.5 kg/m2 05/24/2018 9:24am Weight 150.00 lb Weight 68.040 kg Height 67 inches 5'7" Height in cm's 170.2 cm BMI (Body Mass Index) 23.5 kg/m2 Results Description No Information Available Procedures Date Code Description Status 11/13/2018 56200 Binocular Microscopy Completed Medical Devices Description No Information Available Encounters Type Date Location Provider Dx Diagnosis Office Visit 11/13/2018 [place],After Nils Bond85.819 Prsnl hx of malig 2:15p 02/07/07 Natasha Hollins neoplm of unsp site lip,oral cav,& pharynx H71.02 Cholesteatoma of attic, left ear H72.02 Central perforation of tympanic membrane, left ear Office Visit 05/24/2018 [place],After Nils Bond85.819 Prsnl hx of 9:30a 02/07/07 Natasha Hollinsig neoplm of unsp site lip,oral cav,& pharynx H65.32 Chronic mucoid otitis media, left ear R13.14 Dysphagia, pharyngoesophageal phase Assessments Date Code Description Provider 11/13/2018 Z85.819 Personal history of malignant neoplasm Nils Hollins M.D. of unspecified site o 11/13/2018 H71.02 Cholesteatoma of attic, left ear Nils Hollins M.D. 11/13/2018 H72.02 Central perforation of tympanic Nils Hollins M.D. membrane, left ear 05/24/2018 Z85.819 Personal history of malignant neoplasm Nils Hollins M.D. of unspecified site o 05/24/2018 H65.32 Chronic mucoid otitis media, left ear Nils Hollins M.D. 05/24/2018 R13.14 Dysphagia, pharyngoesophageal phase Nils Hollins M.D. Plan of Treatment Future Appointment(s):01/09/2019 10:00 am - Jacques Zaidi MD at [place], After 02/07/809 - Nils Hollins M.D.Z85.819 Personal history of malignant neoplasm of unspecified site oComments:The patient is doing ok. There is no evidence of disease at this time. The tube is in place and patent.H71.02 Cholesteatoma of attic, left earNew Medication:Ciprodex 0.3-0.1 % - 4 drops in left ear twice a dayComments:he had a tube in the left ear because of persistent effusion after his radiation. Unfortunately he has developed a cholesteatoma. I removed the tube. He has the perforation from that. There was an attic cholesteatoma. I will have him use Ciprodex drops an FU with DR. Zaidi in 4 weeks.H72.02 Central perforation of tympanic membrane, left ear Functional Status Description No Information Available Mental Status Description No Information Available Referrals Description No Information Available
[2018-12-16] MEDS ORDERED: Iohexol 300* (CONTRAST) 10 ML SDV IV ONE (14:42)
[2018-12-16] MEDS ORDERED: Piperacillin/Tazobac ADVAN(*) 3.375 GM in NS 0.9% 100 ML* 100 ML IVPB ONE (15:19)
[2018-12-16] MEDS ORDERED: Norepinephrine 16MCG/ML IVPRE* 4,000 MCG/250 ML BAG IV ONE (15:41)
[2018-12-16] MEDS: Norepinephrine 16MCG/ML IVPRE* 4,000 MCG/250 ML BAG IV ONE ×2 (15:45→16:04)
--- NOTE | 2018-12-16 16:58 | HP ---
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 Pain since 1 week. Thought was groin pull. Rx'd with pain medications and during the week started on Amoxocillin. Pain has gotten progressively worse during week. Presented to the ED, hypotensive despite 5 liters IVF's and Levophed. Presently , AF. HR 92, RR 20, 89/57 with 99% [address] in the ED showed acute appendicitis and 2.4 cm loculated fluid. Patient seen by Surgery and not deemed surgical candidate. Patient now with peritoneal signs. - Past Medical History Cardiac: HTN, Hyperlipidemia Pulmonary: Other - hx of aspiration PNA MEDICATION TECH: CVA - Past Surgical History Past Surgical History: None - Past Family History Family History: None - Past Social History Smoke: Quit Review of Systems - Review of Systems Gastrointestinal: Positive: Nausea, Vomiting, Other - n/v but has stopped for several days - Medications/Allergies Allergies/Adverse Reactions: Allergies Allergy/AdvReac Type Severity Reaction Status Date / Time No Known Allergies Allergy Verified 11/20/18 13:22 Medications: Current Medications Acetaminophen (Tylenol Tab*) 650 mg PO Q4H PRN PRN Reason: FEVER Metronidazole/Sodium Chloride (Flagyl 500 Mg Ivpb*) 500 mg in 100 mls @ 100 mls /hr IVPB Q8H PARAS Norepinephrine Bitartrate (Levophed 16 Mcg/Ml Premix*) 4,000 mcg in 250 mls @ 18.75 mls/hr IV .INITIAL RATE PARAS; Protocol Sodium Chloride (Ns 0.9% 1000 Ml) 1,000 mls @ 75 mls/hr IV PER RATE PARAS Morphine Sulfate (Morphine Inj (Syringe)*) 2 mg IV Q2H PRN PRN Reason: PAIN - SEVERE Pharmacy Consult (Zosyn Per Pharmacy*) 1 note FOLLOW UP .ZOSYN PER PHARMACY PARAS Exam - Exam Vital Signs: Vital Signs (72 hours) 12/16/18 12/16/18 12/16/18 11:11 12:26 12:31 Temperature 97.7 F Pulse Rate 104 91 88 Respiratory 18 18 Rate Blood Pressure 160/85 (mmHg) O2 Sat by Pulse 92 89 93 Oximetry 11/09/19 11/09/19 11/09/19 13:00 13:01 13:31 Temperature Pulse Rate 99 97 91 Respiratory Rate Blood Pressure 113/66 89/63 (mmHg) O2 Sat by Pulse 91 94 89 Oximetry 12/16/18 12/16/18 12/16/18 14:00 14:01 14:04 Temperature Pulse Rate 91 91 90 Respiratory Rate Blood Pressure 74/52 88/49 (mmHg) O2 Sat by Pulse 88 89 91 Oximetry 12/16/18 12/16/18 12/16/18 14:30 15:07 15:17 Temperature Pulse Rate 89 82 84 Respiratory Rate Blood Pressure 94/60 84/56 (mmHg) O2 Sat by Pulse 89 89 Oximetry 12/16/18 12/16/18 12/16/18 15:31 15:33 15:37 Temperature Pulse Rate 87 84 82 Respiratory Rate Blood Pressure 66/25 49/39 48/36 (mmHg) O2 Sat by Pulse 83 88 88 Oximetry 12/16/18 12/16/18 12/16/18 15:41 15:44 15:49 Temperature Pulse Rate 84 83 85 Respiratory Rate Blood Pressure 61/43 65/51 101/65 (mmHg) O2 Sat by Pulse 85 90 99 Oximetry 12/16/18 12/16/18 12/16/18 15:51 15:55 15:56 Temperature Pulse Rate 83 80 81 Respiratory Rate Blood Pressure 91/56 63/47 78/56 (mmHg) O2 Sat by Pulse 95 95 99 Oximetry 12/16/18 12/16/18 12/16/18 16:00 16:01 16:06 Temperature Pulse Rate 89 89 88 Respiratory Rate Blood Pressure 108/77 99/67 (mmHg) O2 Sat by Pulse 100 99 99 Oximetry 12/16/18 12/16/18 12/16/18 16:12 16:17 16:21 Temperature Pulse Rate 91 91 92 Respiratory 24 29 31 Rate Blood Pressure 113/72 90/65 94/64 (mmHg) O2 Sat by Pulse 93 90 94 Oximetry 12/16/18 12/16/18 12/16/18 16:27 16:31 16:36 Temperature Pulse Rate 92 91 88 Respiratory 33 29 26 Rate Blood Pressure 83/70 94/68 89/57 (mmHg) O2 Sat by Pulse 98 97 99 Oximetry General: Alert, Oriented x3, No acute distress HEENT: Atraumatic, Other - chronic voice changes Lungs: Normal air movement Cardiovascular: Regular rate, Normal S1, Normal S2 Abdomen: Other - no rebound or guarding. slightly tender to palp LLQ Extremities: No clubbing, No cyanosis, No edema Skin: No rashes Neurological: Normal gait, Normal speech, Normal tone, Sensation intact Psych/Mental Status: Mental status NL Assessment/Plan - Assessment/Plan Assessment: rupture appendix with walled off abscess septic shock hx of carotid disease hx of tonsillar cancer hx of aspiration PNA--ct chest 12/07/18 with RLL consolidation/atelectasis that correlates with todays CXR Plan: continue aggressive IVF's maintain MAP >65 add zosyn/flagyl hold DOAC in case needs to go to OR IR drainage per Surgery service \ admit to ICU CCM time 45 minutes
[2018-12-16] MEDS ORDERED: Zosyn per Pharmacy* NOTE FOLLOW UP SCH (17:00)
[2018-12-16] MEDS ORDERED: NS 0.9% 1000 ML** 1,000 ML IV SCH (17:00)
--- NOTE | 2018-12-16 17:26 | CONS ---
CC: Dr. Esvin Rea; Dr. Jacques Zaidi; Dr. Aiden Freeman; Dr. Amie Louis; [facility]; Dr Kristen Kim; Dr. Cyrus Millard SURGICAL CONSULTATION REPORT: DATE OF CONSULT: 12/16/18 LOCATION: The patient was seen in the emergency room. PRIMARY CARE DOCTOR: Dr. Dex Kim. HISTORY OF PRESENT ILLNESS: I was contacted by the emergency room staff to evaluate Mr. Mancia, a 68-year-old gentleman who was brought to the emergency room by his for concerns of possible asp iration pneumonia with coughing, shortness of breath, and abdominal pain. Workup in the emergency ro om included a CAT scan of the abdomen and pelvis with oral contrast and was associated with a rupture d appendicitis with a retroperitoneal abscess. I came to the hospital to see the patient. I noted that he was hypotensive. The patient had already been treated with boluses by the ER staff and started on a norepi drip at that time. The patient wa s somewhat agitated, but otherwise answering questions appropriately. History obtained through both the patient and his , complaining of a 7-day history of intermitten t abdominal pain mostly on the right side with decreased appetite and episodes of nausea and vomiting . His last vomiting episode was Tuesday or Tuesday. The patient had his last bowel movement yeste morning. The patient states that the pain is mostly on the right side. It is relieved with rest or narcotics. The patient denies any previous similar symptoms. 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 He had had a gastrostomy placed as well and underwent chemo and radiation and is now consider ed in remission. He did go to his primary care doctor and his oncologist on 2 occasions this week at least. He was diagnosed with aspiration pneumonia and started on Augmentin on by his [facility] care doctor. He has also been taking tramadol for pain. PAST MEDICAL HISTORY: Tonsillar cancer as described above, carotid artery disease, CVA, hyperlipidem ia, remote history of CHF diagnosed about 4 years ago. PAST SURGICAL HISTORY: As above. Abdominal surgeries include PEG only. MEDICATIONS: Home medications include: 1. Tramadol. 2. Atorvastatin. 3. Eliquis. 4. Multaq. 5. Pilocarpine. 6. Timolol. FAMILY HISTORY: Noncontributory. SOCIAL HISTORY: He lives with his . He is retired. He did smoke in the past and quit in 2016. Denies alcohol use. REVIEW OF SYSTEMS: Stroke as described above. Shortness of breath and cough is not far from his bas sofy. Cardiac disease: He has a history of AFib, not being treated for this and CHF, is not on med ications for this. Vomiting as described above, but no history of GERD. PEG that was removed after his full treatment. He does tolerate oral diet without problem except for this week when he has had no appetite. Normal bowel habits and no change in these. He is on Eliquis, but no bleeding or clott ing disorders known of other than the history of stroke. No endocrine disorders. No psychiatric ill nesses. PHYSICAL EXAM: The patient has been afebrile with a temperature of 97.7; heart rate between 80s and 90s with blood pressure on arrival of 160/85, soon 113/66 and continued to drop and now on a low dose of norepinephrine; respiration rate in the 20s; O2 sat low 90s. He is awake. He is alert. He is m ildly agitated. He is difficult to understand at times. Head, Ears, Eyes, Nose, and Throat: Normoce phalic, atraumatic. Sclerae anicteric. Mucous membranes are dry. Neck: Stiff consistent with radia tion without lymphadenopathy. Lungs: Expiratory wheezes on the left, otherwise poor inspiratory eff ort. No additional wheezing. Abdomen is somewhat tense, nondistended. Tender at the right side with negative diffuse rebound, but local peritoneal signs. Well epithelialized gastrostomy site. No jas ias are noted. Rectal exam not performed. Extremities without pitting edema or mottling. Palpable pulses at the femoral artery bilaterally. DIAGNOSTIC STUDIES/LAB DATA: Labs show white count of 10 with H and H 11/35. The patient's baseline hemoglobin seems to be about that. Sodium of 125. Normal lipase. Normal LFTs with the exception o f mildly elevated alk phos. Creatinine of 1.1, the patient's baseline is 0.8. CT scan of the abdomen and pelvis reviewed images as well as the report and is consistent with right lower quadrant extending to his right paracolic gutter abscess that measures 2.4 cm. No free air. S mall amount of free fluid in the pelvis. IMPRESSION AND PLAN: A 68-year-old gentleman with an appendiceal abscess, missed appendicitis, going through a week of discomfort and poor p.o. intake, who now shows signs of dehydration, will likely i mprove with fluid resuscitation and IV antibiotics. The patient has been on oral antibiotics only . We will convert this to IV and look towards drainage of an abscess either with Interve ntional Radiology or surgically. Surgically, we would look towards possible laparoscopy versus a lap arotomy to perform this with or without appendectomy depending on what we find. The patient is curre ntly on Eliquis and although we can operate, I feel the patient is better suited with IV hydration, a ntibiotics and observation with discussion with the radiology group. I discussed the case with the intensive care, who is willing to take the admission and get the patien t better resuscitated. Recommend Jade catheter and I asked the nursing staff to place this. I will recommend NG tube if the patient does vomit again since he is an aspiration risk. The patient's wif e and the patient are aware of my plan of ICU admission, IV fluids, antibiotics, n.p.o., possible NG tube, Jade catheterization, and close observation with possible intervention with Radiology or Surge ry. [id number]/[facility] #: [id number]
--- NOTE | 2018-12-16 17:51 | OP ---
Operative Report - Blank - Operative Report Date of Operation: 12/16/18 Note: Triple lumen placement A time-out was completed verifying correct patient, procedure, and site positioning. The patients right neck was prepped and draped in sterile fashion. Lidocaine was used to anesthetize the surrounding skin area. Under ultrasound guidance, a triple lumen catheter was introduced into the internal jugular vein using the Seldinger technique. The catheter was threaded smoothly over the guide wire and appropriate blood return was obtained. Each lumen of the catheter was evacuated of air and flushed with sterile saline. The catheter was then sutured in place to the skin and a sterile dressing applied. Estimated Blood Loss was minimal. CXR ordered for correct placement. The patient tolerated the procedure well and there were no complications
[2018-12-16] MEDS: metroNIDAZOLE IV 500 MG/100ML* 500 MG/100 ML BAG IVPB SCH (18:00)
[2018-12-16] MEDS: Acetaminophen TAB* 325 MG PO PRN (19:47)
[2018-12-16] MEDS ORDERED: [UNRECOGNIZED DRUG - MIXTURE] SWISH SPIT SCH (21:00)
[2018-12-16] MEDS: ZOSYN 3.375 GM Q8H per EXTENDED INFUSION IVPB SCH ×2 (21:23)
[2018-12-16] MEDS: Norepinephrine 16MCG/ML IVPRE* 4,000 MCG/250 ML BAG IV SCH (22:09)
[2018-12-16] MEDS ORDERED: Magic Mouth Was-BEN/MAAL/LIDO SWISH SPIT SCH (23:00)
[2018-12-17 00:32] LABS: Urine Appearance Clear; Urine Bacteria Absent (Absent); Urine Bilirubin Negative (Negative); Urine Blood 2+ (Negative); Urine Color Yellow; Urine Glucose Negative (Negative); Urine Ketones Trace (Negative); Urine Nitrite Negative (Negative); Urine Protein Negative (Negative); Urine Red Blood Cell 3+(>10/hpf) (Absent); Urine Specific Gravity 1.019 (1.010-1.030); Urine Urobilinogen Negative (Negative); Urine White Blood Cell Trace(0-5/hpf) (Absent)
[2018-12-17] MEDS: Morphine INJ* 2 MG/ML 1 ML SYRINGE (TWO MG - NEW SYRINGE VERSION) IV PRN ×5 (01:33→22:32)
[2018-12-17] MEDS: metroNIDAZOLE IV 500 MG/100ML* 500 MG/100 ML BAG IVPB SCH ×3 (01:52→18:16)
[2018-12-17] MEDS: ZOSYN 3.375 GM Q8H per EXTENDED INFUSION IVPB SCH ×6 (02:55→20:27)
[2018-12-17 04:56] LABS: ABS Lymphocytes 0.9 10^3/ul (1.0-4.8); ABS Monocytes 0.7 10^3/ul (0-0.8); ABS Neutrophils 13.5 10^3/ul (1.5-7.7); Hematocrit 34 % (42-52); Hemoglobin 11.4 g/dL (14.0-18.0); Lymphocyte % 5.7 %; Mean Corpuscular HGB Conc 34 g/dL (31-36); Mean Corpuscular Hemoglobin 29 pg (27-31); Mean Corpuscular Volume 88 fL (80-94); Mean Platelet Volume 6.5 fL (7.4-10.4); Platelet Count 267 10^3/uL (150-450); Red Blood Count 3.89 10^6 /uL (4.18-5.48); Red Cell Distribution Width 14 % (10-15); White Blood Count 15.1 10^3/uL (3.5-10.8)
[2018-12-17 05:14] LABS: Calcium 8.2 mg/dL (8.6-10.3); EGFR African American 201.3 (>60); EGFR Non-African American 166.4 (>60); Potassium 3.6 mmol/L (3.5-5.0)
[2018-12-17] MEDS: Norepinephrine 16MCG/ML IVPRE* 4,000 MCG/250 ML BAG IV SCH ×3 (05:20→23:13)
[2018-12-17] MEDS: Magic Mouth Was-BEN/MAAL/LIDO SWISH SPIT SCH ×4 (09:08→21:41)
[2018-12-17] MEDS: NS 0.9% 1000 ML** 1,000 ML IV SCH ×2 (10:00→23:35)
--- NOTE | 2018-12-17 11:35 | PN ---
Progress Note - Progress Note Date of Service: 12/17/18 SOAP: Subjective: Pt seen and examined. feeling a little better today. hungry, wants to go home continued abdominal pain- diffuse Objective: Temp Pulse Resp BP Pulse Ox 99.1 F 71 15 98/58 99 12/17/18 07:56 12/17/18 08:46 12/17/18 09:09 12/17/18 08:46 12/17/18 08:46 on pressors a and o x3, nad abdo: tense- tender w/o rebound, pos BS wbc up Assessment: perforated appy- case d/w radiology. abscess to small for drainage Plan: cont ICU CT a/p in am abx follow closely
--- NOTE | 2018-12-17 12:16 | PN ---
Date of Service: 12/17/18 Critical Care Services: remains on low dose Levophed (8) pain @3-5 per patient. Increased from yesterday renal functions improved. hyponatremia improved with IVF's Vital Signs: Temp Pulse Resp BP SpO2 FiO2 99.1 F 71 15 98/58 99 12/17/18 07:56 12/17/18 08:46 12/17/18 09:09 12/17/18 08:46 12/17/18 08:46 Physical Exam: Gen: NAD. AO times 3, Heart: RRR, Lungs: Decreased Breath sounds, GI: +BSs, tender to palpation RLQ/LLQ. No rebound or guarding. Neuro: No focal deficits. Extremities: No edema. Fluid Balance (Past 24 Hours): I= O= Net Intake & Output 12/15/18 12/16/18 12/17/18 12/18/18 06:59 06:59 06:59 06:59 Intake Total 6411 Output Total 2865 125 Balance 3546 -125 Weight 153 lb Intake: IV Fluids 5184 NS (0.9%) 3184 IVPB 783 ABX - FLAGYL 195 ABX - ZOSYN 588 Medicated IV 444 CC - Norepinephrine/ 444 Levophed Output: Jade 2865 125 Labs: Laboratory Results - last 24 hr 12/16/18 12/16/18 12/16/18 00:00 11:58 11:58 WBC 12.4 H RBC 4.02 L Hgb 11.8 L Hct 35 L MCV 88 MCH 30 MCHC 34 RDW 13 Plt Count 269 MPV 7.0 L Neut % (Auto) 91.8 Lymph % (Auto) 3.7 [place] % (Auto) 4.4 Eos % (Auto) 0.0 Baso % (Auto) 0.1 Absolute Neuts (auto) 11.4 H Absolute Lymphs (auto) 0.5 L Absolute Monos (auto) 0.5 Absolute Eos (auto) 0.0 Absolute Basos (auto) 0.0 Absolute Nucleated RBC 0.0 Nucleated RBC % 0.0 Sodium 125 L Potassium 4.3 Chloride 92 L Carbon Dioxide 27 Anion Gap 6 BUN 17 Creatinine 1.12 Est GFR ( Amer) 79.4 Est GFR (Non-Af Amer) 65.6 BUN/Creatinine Ratio 15.2 Glucose 90 Calcium 9.2 Total Bilirubin 0.80 AST 27 ALT 15 Alkaline Phosphatase 154 H Total Protein 7.4 Albumin 3.8 Globulin 3.6 Albumin/Globulin Ratio 1.1 Lipase < 10 L Urine Color Yellow Urine Appearance Clear Urine pH 6.0 Ur Specific [place] 1.019 Urine Protein Negative Urine Ketones Trace A Urine Blood 2+ A Urine Nitrate Negative Urine Bilirubin Negative Urine Urobilinogen Negative Ur Leukocyte Esterase Negative Urine WBC (Auto) Trace(0-5/hpf) Urine RBC (Auto) 3+(>10/hpf) A Urine Bacteria Absent Urine Glucose Negative 12/17/18 12/17/18 04:45 04:45 WBC 15.1 H RBC 3.89 L Hgb 11.4 L Hct 34 L MCV 88 MCH 29 MCHC 34 RDW 14 Plt Count 267 MPV 6.5 L Neut % (Auto) 89.6 Lymph % (Auto) 5.7 [place] % (Auto) 4.4 Eos % (Auto) 0.0 Baso % (Auto) 0.3 Absolute Neuts (auto) 13.5 H Absolute Lymphs (auto) 0.9 L Absolute Monos (auto) 0.7 Absolute Eos (auto) 0.0 Absolute Basos (auto) 0.0 Absolute Nucleated RBC 0.0 Nucleated RBC % 0.0 Sodium 129 L Potassium 3.6 Chloride 100 L Carbon Dioxide 21 L Anion Gap 8 BUN 9 Creatinine 0.50 L Est GFR ( Amer) 201.3 Est GFR (Non-Af Amer) 166.4 BUN/Creatinine Ratio 18.0 Glucose 85 Calcium 8.2 L Total Bilirubin AST ALT Alkaline Phosphatase Total Protein Albumin Globulin Albumin/Globulin Ratio Lipase Urine Color Urine Appearance Urine pH Ur Specific [place] Urine Protein Urine Ketones Urine Blood Urine Nitrate Urine Bilirubin Urine Urobilinogen Ur Leukocyte Esterase Urine WBC (Auto) Urine RBC (Auto) Urine Bacteria Urine Glucose Impression: s/p perforated appendix c/b septic shock Aneesh - resolved Hyponatremia -resolving hx of carotid stenosis on DOAC Plan: continue empiric ABX continue Levophed. Attempt to titrate off D/W surgery and Radiology. No IR or surgical candidate Replete lytes and continue IVF"s Critical Care Time: 55
[2018-12-17] MEDS ORDERED: NS 0.9% 1000 ML** 1,000 ML IV ONE (16:30)
[2018-12-18] MEDS: Morphine INJ* 2 MG/ML 1 ML SYRINGE (TWO MG - NEW SYRINGE VERSION) IV PRN ×8 (00:36→14:05)
[2018-12-18] MEDS: metroNIDAZOLE IV 500 MG/100ML* 500 MG/100 ML BAG IVPB SCH ×3 (01:44→18:08)
[2018-12-18] MEDS: ZOSYN 3.375 GM Q8H per EXTENDED INFUSION IVPB SCH ×6 (03:49→19:36)
[2018-12-18] MEDS: NS 0.9% 1000 ML** 1,000 ML IV SCH (05:33)
[2018-12-18 06:04] LABS: ABS Lymphocytes 0.7 10^3/ul (1.0-4.8); ABS Monocytes 0.7 10^3/ul (0-0.8); ABS Neutrophils 10.3 10^3/ul (1.5-7.7); Eosinophil % 0.1 %; Hematocrit 31 % (42-52); Hemoglobin 10.3 g/dL (14.0-18.0); Lymphocyte % 6.1 %; Mean Corpuscular HGB Conc 34 g/dL (31-36); Mean Corpuscular Hemoglobin 29 pg (27-31); Mean Corpuscular Volume 87 fL (80-94); Mean Platelet Volume 6.7 fL (7.4-10.4); Nucleated Red Blood Cells % 0.1; Platelet Count 245 10^3/uL (150-450); Red Blood Count 3.54 10^6 /uL (4.18-5.48); Red Cell Distribution Width 14 % (10-15); White Blood Count 11.7 10^3/uL (3.5-10.8)
[2018-12-18 06:09] LABS: INR 1.95 (0.82-1.09)
[2018-12-18 06:28] LABS: EGFR African American 201.3 (>60); EGFR Non-African American 166.4 (>60); Potassium 3.5 mmol/L (3.5-5.0)
[2018-12-18] MEDS: Magic Mouth Was-BEN/MAAL/LIDO SWISH SPIT SCH ×4 (08:32→21:39)
--- NOTE | 2018-12-18 12:38 | PN ---
Progress Note - Progress Note Date of Service: 12/18/18 SOAP: Subjective: Pt seen and examined earlier today. Feeling a little better. Off pressors Objective: Temp Pulse Resp BP Pulse Ox 98.7 F 71 14 117/59 97 12/18/18 08:00 12/18/18 12:30 12/18/18 12:30 12/18/18 12:30 12/18/18 12:30 abdo: tense, tender diffusely w/o rebound labs noted Repeat CT- mostly unchanged. ruptured appendix, now visualizing apendicolith HD stable Assessment: perforated appy with abscess Plan: abx, stephen likely need OR for Dx laparoscopy, possible laparotomy, appendectomy vs drainage and washout vs partial colectomy
--- NOTE | 2018-12-18 13:19 | PN ---
Date of Service: 12/18/18 Critical Care Services: Repeat reviewed and dw surgery off pressors Vital Signs: Temp Pulse Resp BP SpO2 FiO2 98.9 F 71 14 117/59 97 12/18/18 12:00 12/18/18 12:30 12/18/18 12:30 12/18/18 12:30 12/18/18 12:30 Physical Exam: Gen: NAD. AO times 3, Heart: RRR, Lungs: Decreased Breath sounds, GI: +BSs, Tender palpation . No rebound or guarding. Neuro: No focal deficits. Extremities : No edema Fluid Balance (Past 24 Hours): I= O= Net Intake & Output 12/16/18 12/17/18 12/18/18 12/19/18 06:59 06:59 06:59 06:59 Intake Total 6411 4166.7 Output Total 2865 1574 275 Balance 3546 2592.7 -275 Weight 153 lb 154 lb 9 oz Intake: IV Fluids 5184 3228 NS (0.9%) 3184 3228 IVPB 783 292 ABX 292 ABX - FLAGYL 195 ABX - ZOSYN 588 Medicated IV 444 446.7 CC - Norepinephrine/ 444 446.7 Levophed Oral 200 Output: Jade 2865 1574 275 Labs: Laboratory Results - last 24 hr 12/18/18 12/18/18 12/18/18 05:40 05:40 05:40 WBC 11.7 H RBC 3.54 L Hgb 10.3 L Hct 31 L MCV 87 MCH 29 MCHC 34 RDW 14 Plt Count 245 MPV 6.7 L Neut % (Auto) 87.7 Lymph % (Auto) 6.1 [place] % (Auto) 5.8 Eos % (Auto) 0.1 Baso % (Auto) 0.3 Absolute Neuts (auto) 10.3 H Absolute Lymphs (auto) 0.7 L Absolute Monos (auto) 0.7 Absolute Eos (auto) 0.0 Absolute Basos (auto) 0.0 Absolute Nucleated RBC 0.0 Nucleated RBC % 0.1 INR (Anticoag Therapy) 1.95 H Sodium 131 L Potassium 3.5 Chloride 102 Carbon Dioxide 24 Anion Gap 5 BUN 9 Creatinine 0.50 L Est GFR ( Amer) 201.3 Est GFR (Non-Af Amer) 166.4 BUN/Creatinine Ratio 18.0 Glucose 95 Calcium 8.0 L Impression: s/p perforated appendix c/b septic shock Aneesh - resolved Hyponatremia -resolving hx of carotid stenosis on DOAC Plan: patient to go to OR because today's CT scan and non-resolution Continue empiric ABX D/W surgery. Patient high risk but requires surgery will need to have AC once surgery and patient stable. Critical Care Time: 56
--- NOTE | 2018-12-18 13:20 | CONSULT ---
Consult Consult: After discussion with patient and , I have recommended diagnositic laparoscopy, possible laparotomy, appendectomy, possible segmental colectomy. R/B/A discussed at length. Pt wishes to proceed. Although pt has shown good improvement until now, he still has significant abdo pain and a CT scan suggestive of fecalith- - this should be removed. Possibel complications discussed and additional notes dictated on hospital line.
[2018-12-18] MEDS ORDERED: Bupivacaine 0.25% SDV PF* 10 ML VIAL INJ ONE (13:37)
[2018-12-18] MEDS ORDERED: Bupivacaine 0.25% EPI 200,000* 30 ML SDV ONE (13:41)
--- NOTE | 2018-12-18 13:46 | PN ---
PROGRESS NOTE: Notes were typed but I wanted to add additional information. DATE OF VISIT: 12/18/18 I have recommended to Mr. Mancia and his operative intervention for what looks to be a retroperitoneal perforated appendix with likely appendicolith and an abscess. I have recommended diagnostic laparoscopy, possible laparotomy, appendectomy, possible segmental colectomy. I have outlined the details of the procedure, going over the risks, benefits, and alternatives. The alternatives of continued antibiotics and watchful waiting had been discussed. I feel that the patient is improved since presenting to the hospital 2 days ago, but will likely stall out at this position if he only has antibiotics alone. For this reason, I am recommending the above procedure. The patient wishes to proceed. I spoke about the possible complications which include but not limited to bleeding, infection, open procedure, need for colectomy, abscess formation, leak , need for colostomy, stroke, PE, pneumonia, urinary tract infection, hernia formation, [place] and even . The patient is aware of this and the consent is signed. He is marked appropriately. I discussed the case with the critical care team as well making my recommendations clear. [id number]/[facility] #: [id number] OBDULIO
[2018-12-18] MEDS ORDERED: Levalbuterol 0.63MG/3ML NEB* UNIT OF USE INH ONE (14:09)
[2018-12-18] MEDS ORDERED: Levalbuterol 1.25MG/0.5ML NEB ONE (14:12)
[2018-12-18] MEDS ORDERED: Famotidine IV* 10 MG/ML 2 ML (20 mg) ONE (14:18)
[2018-12-18] MEDS ORDERED: Lidocaine 4% TOPICAL* 50 ML TOP.SOLN ONE (14:32)
[2018-12-18] MEDS ORDERED: Lidocaine 2% PF * 5 ML VIAL ONE (14:33)
[2018-12-18] MEDS ORDERED: Dexamethasone IV* 4 MG/ML 1 ML (4 MG) ONE (14:33)
[2018-12-18] MEDS ORDERED: Propofol* 10 MG/ML 20 ML BTL ONE (14:33)
[2018-12-18] MEDS ORDERED: Midazolam* 1 MG/ML 2 ML VIAL (2 MG) ONE (14:38)
[2018-12-18] MEDS ORDERED: Cisatracurium* 2 MG/ML MDV 5 ML ONE (14:42)
[2018-12-18] MEDS ORDERED: fentaNYL* 50 MCG/ML 2 ML VIAL (100 MCG VIAL) ONE (15:48)
[2018-12-18] MEDS ORDERED: fentaNYL* 50 MCG/ML 2 ML VIAL (100 MCG VIAL) IV PRN (16:02)
[2018-12-18] MEDS ORDERED: DiMENhydriNATE IV* 50 MG/ML VIAL IV PUSH PRN (16:02)
[2018-12-18] MEDS ORDERED: Levalbuterol 0.63MG/3ML NEB* UNIT OF USE INH PRN (16:02)
[2018-12-18] MEDS ORDERED: Naloxone* 0.4 MG/ML 1 ML VIAL IV PRN (16:02)
[2018-12-18] MEDS ORDERED: EPHEDrine (Pressors)* 50 MG/ML VIAL ONE (16:05)
[2018-12-18] MEDS ORDERED: Phenylephrine 40 MCG/ML SYRINGE ONE (16:05)
[2018-12-18] MEDS ORDERED: Acetaminophen IV 1GM/100ML * 100 ML ONE (16:06)
[2018-12-18] MEDS ORDERED: Ondansetron INJ* 2 MG/ML VIAL ONE (16:20)
--- NOTE | 2018-12-18 16:31 | OP ---
Operative Report - Blank - Operative Report Date of Operation: 12/18/18 Note: Pre-OP Diagnoses: acute perforated appendicitis, abdominal abscess Post-op Diagnosis: same Procedure: Laparoscopic appendectomy, drainage of abscess Surgeon: Regulo Asst: MD Payal Anethesia: RAFFI Ferrer EBL: 60cc IVF: 1100crystalloid Specimen: appendix Drains: #10 DOYLE Jade 150cc
--- NOTE | 2018-12-18 21:27 | OP ---
CC: Dr. Esvin Rea; Dr. Jacques Zaidi; Dr. Aiden Freeman; Dr. Amie Louis; Dr. Dex Kim; Dr. Cyrus Millard * DATE OF OPERATION: 12/18/18 - ROOM #ICU-08 DATE OF : 54 SURGEON: Al Rajput MD CASE TECHNICIAN: Ora Moe MD ANESTHESIOLOGIST: Dr. Ferrer. ANESTHESIA: General. PRE-OP DIAGNOSIS: Acute perforated appendicitis. POST-OP DIAGNOSIS: Acute perforated appendicitis. OPERATIVE PROCEDURES: Laparoscopic appendectomy and drainage of abscess. ESTIMATED BLOOD LOSS: 50 cc. FLUIDS: Crystalloid fluid given 1100 cc. URINE OUTPUT THROUGH ETIENNE: 150 cc. SPECIMEN: Appendix. DRAINS: A #10 DOYLE drain. DESCRIPTION OF PROCEDURE: The patient was taken from the ICU to the OR and transferred to table. Sedation and sequential devices were placed in the bilateral lower extremities and general anesthesia was induced. Please see separate report for details. After this, an A line was placed in the left radial artery. Then the abdomen was clipped of hair prepped and draped in a standard surgical fashion. A time-out was performed. A right upper quadrant incision was made. This was deepened down to the anterior fascia, which was elevated and a Veress needle inserted into the abdominal cavity, which was then allowed to insufflate to a pressure of 15 mmHg. The patient tolerated the insufflation well. A 12-mm optical trocar was then placed through this incision and a laparoscope was inserted. There was no evidence of injury from trocar insertion or from the Veress needle. There was exudative tissue, but no significant fluid. The bowel was not significantly injected, but it was distended and the working field was limited. Additional trocars were then placed in the following positions; a 5 mm in the umbilicus and 5 mm in the suprapubic area. The table was repositioned and attention was turned towards the terminal ileum. This small bowel was attempted to be reflected superiorly. We released the lateral attachments with scissors, but the terminal ileum did curl back just at the area of the cecum and we had a difficult time rotating the terminal ileum completely and releasing these areas. The small bowel and colon were dilated and made it somewhat difficult. We then turned our attention to the cecum and we identified the base of the appendix. This appeared somewhat healthy. We made a window at the base of the appendix. We tried to rotate the cecum medially and we did this somewhat, but made a decision to transect the appendix at the base with a 45-mm maciel MIRZA stapling device and then we rather grasped the appendix and took its mesentery with LigaSure device. This did require an additional 5 mm trocar. This was placed in the upper midline. This allowed with the fourth port to retract the ascending colon medially as best as possible. Then grasping the base of the appendix at its staple line and use of the LigaSure device to scar the appendix staying out of the infected area. We did open into an area of an abscess. We suctioned fluid, which did have the sense that it was a small stone, but we could not locate it. It appeared to gone right through the suction before we were able to appreciate it. We were looking at the abscess cavity and an additional dissection was carried out to fully remove the appendix from this site. We then placed an endoscopic retrieval bag. We did not break it up, but it did have a bulbous tip. It was unclear if it was portion of the abscess as well. We then placed this in an endoscopic retrieval bag and brought it out through the 12-mm trocar and passed this off as specimen. Oozing was appreciated at the liver edge where this appendix did lie. We placed a Surgicel at this site followed by a 4 x 8 gauze to apply pressure. With the pressure applied at this site, we then turned our attention to the small bowel. This was run retrograde. No intra- loop abscess was appreciated. Some exudative tissue was removed bluntly. Attention was turned towards the pelvis and a similar exudative tissue was noted and this was removed, but no free fluid. Review of the spleen showed no fluid; over the liver scant fluid that was suctioned out. We then turned our attention back to the bleeding site at just inferior liver edge retroperitoneal spot that abutted the abscess cavity. The gauze was removed and hemostasis appeared to be achieved. We then placed a #10 DOYLE drain at this site, which was inserted through the upper midline incision and extended along the right paracolic gutter out towards the liver edge. We did review the abscess cavity again and I did not appreciate any additional undrained abscesses. All the other tissue appeared intact. We then put the patient back to the neutral position. The abdomen was allowed to collapse. The trocars were removed under direct vision. The DOYLE drain was sutured in with 3 -0 Prolene suture and the additional incisions were closed with 4-0 Monocryl subcuticular sutures followed by Steri-Strips and sterile dressing. The patient tolerated the procedure well. [id number]/[facility] #: [id number] MTDD
[2018-12-19] MEDS: NS 0.9% 1000 ML** 1,000 ML IV SCH ×2 (00:47→07:29)
[2018-12-19] MEDS: metroNIDAZOLE IV 500 MG/100ML* 500 MG/100 ML BAG IVPB SCH ×3 (02:24→17:31)
[2018-12-19] MEDS: ZOSYN 3.375 GM Q8H per EXTENDED INFUSION IVPB SCH ×6 (03:48→20:58)
[2018-12-19] MEDS: Acetaminophen TAB* 325 MG PO PRN ×2 (06:40→16:17)
[2018-12-19] MEDS: Magic Mouth Was-BEN/MAAL/LIDO SWISH SPIT SCH ×4 (07:59→21:32)
--- NOTE | 2018-12-19 09:44 | PN ---
Progress Note - Progress Note Date of Service: 12/19/18 SOAP: Subjective: Pt seen and examined. Remains ornery but in less pain. tolerating diet pos flatus Objective: Temp Pulse Resp BP Pulse Ox 97.5 F 75 12 157/75 96 12/19/18 09:00 12/19/18 08:00 12/19/18 09:00 12/19/18 09:00 12/19/18 08:00 Intake & Output 12/18/18 12/19/18 12/19/18 22:59 06:59 14:59 Intake Total 1100 1090 Output Total 935 560 205 Balance 165 530 -205 Weight 168 lb 4.8 oz a and o x3, nad abdo: soft/ ND/ inc tenderness DOYLE serous Assessment: POD 1 appy Plan: transfer to floor d/c ivf full liquids only DOYLE teaching
[2018-12-19] MEDS ORDERED: [UNRECOGNIZED DRUG - OTHER] RIGHT EYE PRN (10:41)
--- NOTE | 2018-12-19 10:58 | PN ---
Date of Service: 12/19/18 Critical Care Services: sitting up in bed in NAD. s/p appy POD #1 Vital Signs: Temp Pulse Resp BP SpO2 FiO2 97.5 F 75 18 157/75 96 12/19/18 09:00 12/19/18 08:00 12/19/18 10:00 12/19/18 09:00 12/19/18 08:00 Physical Exam: : Gen: NAD. AO times 3, Heart: RRR, Lungs: Decreased Breath sounds, GI: +BSs, soft, NTP. No rebound or guarding. Neuro: No focal deficits. Extremities: No edema Fluid Balance (Past 24 Hours): I= O= Net Intake & Output 12/17/18 12/18/18 12/19/18 12/20/18 06:59 06:59 06:59 06:59 Intake Total 6411 4166.7 6211 Output Total 2865 1574 2000 240 Balance 3546 2592.7 4211 -240 Weight 153 lb 154 lb 9 oz 168 lb 4.8 oz Intake: IV Fluids 5184 3228 5639 ABX - ZOSYN 100 LR 1100 NS (0.9%) 3184 3228 4439 IVPB 783 292 569 ABX 292 317 ABX - FLAGYL 195 110 ABX - ZOSYN 588 142 Medicated IV 444 446.7 3 CC - Norepinephrine/ 444 446.7 3 Levophed Oral 200 Output: DOYLE #1 20 20 Urine 280 Jade 2865 1574 1700 220 Labs: Laboratory Results - last 24 hr 12/18/18 05:40 Blood Type A Positive Antibody Screen Negative Impression: s/p appendicitis c/b septic shock now s/p appy POD #1 Plan: may transfer to floor restart NOAC continue Flagyl and Zosyn as per surgery diet as per surgery Critical Care Time: 34
[2018-12-19] MEDS ORDERED: Metoclopramide IV* 5 MG/ML 2 ML VIAL IV PRN (11:12)
[2018-12-19] MEDS: PTO:Dorzolamide/Timolol OPTH (NF) 10 ML BOT RIGHT EYE SCH ×2 (12:36→21:34)
[2018-12-19] MEDS ORDERED: oxyCODONE/Acetamin 5/325 MG* TAB ONE (16:16)
[2018-12-19] MEDS: oxyCODONE/Acetamin 5/325 MG* TAB PO PRN (16:17)
[2018-12-19] MEDS ORDERED: Timolol 0.5% OPTH.SOL* BTL RIGHT EYE SCH (21:00)
[2018-12-19] MEDS: Apixaban* 5 MG TAB PO SCH (21:34)
[2018-12-20] MEDS: oxyCODONE/Acetamin 5/325 MG* TAB PO PRN ×3 (00:54→15:39)
[2018-12-20] MEDS: metroNIDAZOLE IV 500 MG/100ML* 500 MG/100 ML BAG IVPB SCH ×3 (02:15→16:19)
[2018-12-20] MEDS: ZOSYN 3.375 GM Q8H per EXTENDED INFUSION IVPB SCH ×4 (03:27→12:00)
[2018-12-20 05:25] LABS: ABS Lymphocytes 1.1 10^3/ul (1.0-4.8); ABS Monocytes 0.7 10^3/ul (0-0.8); ABS Neutrophils 7.4 10^3/ul (1.5-7.7); Hematocrit 31 % (42-52); Hemoglobin 10.4 g/dL (14.0-18.0); Lymphocyte % 11.9 %; Mean Corpuscular HGB Conc 34 g/dL (31-36); Mean Corpuscular Hemoglobin 29 pg (27-31); Mean Corpuscular Volume 88 fL (80-94); Mean Platelet Volume 6.8 fL (7.4-10.4); Nucleated Red Blood Cells % 0.1; Platelet Count 260 10^3/uL (150-450); Red Blood Count 3.52 10^6 /uL (4.18-5.48); Red Cell Distribution Width 14 % (10-15); White Blood Count 9.2 10^3/uL (3.5-10.8)
[2018-12-20 05:42] LABS: Albumin 2.5 g/dL (3.2-5.2); BUN/Creatinine Ratio 22.2 (8-20); Calcium 7.8 mg/dL (8.6-10.3); EGFR African American 227.3 (>60); EGFR Non-African American 187.9 (>60); Globulin 2.5 g/dL (2-4); Magnesium 1.8 mg/dL (1.9-2.7); Potassium 3.1 mmol/L (3.5-5.0); Total Bilirubin 0.3 mg/dL (0.2-1.0)
[2018-12-20] MEDS ORDERED: Magnesium Sulfate 1 GM IV* 1 GM/100 ML BAG IV ONE (09:22)
[2018-12-20] MEDS: Apixaban* 5 MG TAB PO SCH (09:33)
[2018-12-20] MEDS: PTO:Dorzolamide/Timolol OPTH (NF) 10 ML BOT RIGHT EYE SCH (09:33)
[2018-12-20] MEDS: Magic Mouth Was-BEN/MAAL/LIDO SWISH SPIT SCH ×3 (09:47→16:19)
[2018-12-20] MEDS: KCL 20 MEQ/100 ML IVPREMIX* 20 MEQ/100 ML BAG IV SCH ×2 (11:04→13:16)
--- NOTE | 2018-12-20 11:10 | PN ---
Progress Note - Progress Note Date of Service: 12/20/18 SOAP: Subjective: Pt in, NAD. + Flaus, + BM, at bedside [] Objective: Vital Signs Temp 98 F 12/20/18 07:17 Pulse 69 12/20/18 07:17 Resp 18 12/20/18 10:35 BP 165/65 12/20/18 07:17 Pulse Ox 90 12/20/18 08:00 Intake & Output 12/19/18 12/20/18 12/20/18 18:59 06:59 18:59 Intake Total 350 690 250 Output Total 555 910 Balance -205 -220 250 Weight 175 lb 4.28 oz Intake: IV Fluids 20 20 NS (0.9%) 20 20 IVPB 210 110 110 ABX - FLAGYL 105 110 ABX - ZOSYN 105 110 Oral 120 580 120 Output: DOYLE #1 70 10 Urine 225 900 Jade 260 Other: # Bowel Movements 1 Estimated Stool Amount Medium Laboratory Tests 12/20/18 12/20/18 05:00 05:00 WBC 9.2 Potassium 3.1 L PEX: Gen: NAD Chest: Coarse BS's B/L CVS: RRR Abd: Tympanic, non tender, DOYLE serous Ext: Calves soft non tender [] Assessment: POD 2 S/P appy, tolerating full liquids, + BM, low K+ [] Plan: Encouraged deep breathing IS, OOB to chair & Ambulate, replace K+, DOYLE training, poss D/C later today, will D/W Dr Rajput []
[2018-12-20 16:16] VITALS: BP 139/63
[2018-12-20] MEDS ORDERED: Atorvastatin* 20 MG TAB PO SCH (18:00)
[2018-12-20] MEDS ORDERED: Dronedarone TAB* 400 MG PO SCH (21:00)
--- NOTE | 2018-12-22 13:43 | DS ---
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 Pain since 1 week. Thought was groin pull. Rx'd with pain medications and during the week started on Amoxocillin. Pain has gotten progressively worse during week. Presented to the ED, hypotensive despite 5 liters IVF's and Levophed. Presently , AF. HR 92, RR 20, 89/57 with 99% [address] in the ED showed acute appendicitis and 2.4 cm loculated fluid. Patient seen by Surgery and not deemed surgical candidate. Patient then developed peritoneal signs and was taken to the OR on 12/18/18 for a laparoscopic appendectomy, he tolerated the procedure well and was transferred to [facility] for post op care. Post op coarse was uneventful, on 12/20/18 , POD 2 pt was stable, in NAD, had had a BM, was tolerating a full liquid diet. he was stable. Vital Signs Temp 98 F 12/20/18 07:17 Pulse 69 12/20/18 07:17 Resp 18 12/20/18 10:35 BP 165/65 12/20/18 07:17 Pulse Ox 90 12/20/18 08:00 Intake & Output 12/19/18 12/20/18 12/20/18 18:59 06:59 18:59 Intake Total 350 690 250 Output Total 555 910 Balance -205 -220 250 Weight 175 lb 4.28 oz Intake: IV Fluids 20 20 NS (0.9%) 20 20 IVPB 210 110 110 ABX - FLAGYL 105 110 ABX - ZOSYN 105 110 Oral 120 580 120 Output: DOYLE #1 70 10 Urine 225 900 Jade 260 Other: # Bowel Movements 1 Estimated Stool Amount Medium Laboratory Tests 12/20/18 12/20/18 05:00 05:00 WBC 9.2 Potassium 3.1 L PEX: Gen: NAD Chest: Coarse BS's B/L CVS: RRR Abd: Tympanic, non tender, DOYLE serous Ext: Calves soft non tender Assessment: POD 2 S/P appy, tolerating full liquids, + BM, low K+ Plan: Encouraged deep breathing IS, OOB to chair & Ambulate, replace K+, DOYLE training, d/c to home D/C instructions, DOYLE management, full liquid diet, medications, were all reviewed with the patient and his . He will take augmentin 875 twice daily for 5 days. follow up appointment was made. All questions were answered. Pt was d/c'd home in stable condition on 12/20/[address] Randhawa [] []
== END 2018-12-20 17:20 | disposition home or self-care (01) | DRG 853 ==
LOC: ED 11:03 → ICU 16:36 → SSU 12-19 12:53
PROVIDERS: ADMIT Internal Medicine; ATTEND Surgery
PROC: 05HM33Z Insertion of Infusion Device into Right Internal Jugular Vein, Percutaneous Approach (ICD-10-PCS; 2018-12-16)
PROC: 0W9G40Z Drainage of Peritoneal Cavity with Drainage Device, Percutaneous Endoscopic Approach (ICD-10-PCS; 2018-12-18)
PROC: 30233K1 Transfusion of Nonautologous Frozen Plasma into Peripheral Vein, Percutaneous Approach (ICD-10-PCS; 2018-12-18)
PROC: 0DTJ4ZZ Resection of Appendix, Percutaneous Endoscopic Approach (ICD-10-PCS; principal; 2018-12-18 13:30)
DX: A41.9 Sepsis, unspecified organism (principal); K35.33 Acute appendicitis with perforation, localized peritonitis, and gangrene, with abscess; R65.21 Severe sepsis with septic shock; N17.9 Acute kidney failure, unspecified; E87.1 Hypo-osmolality and hyponatremia; I50.9 Heart failure, unspecified; I11.0 Hypertensive heart disease with heart failure; M19.90 Unspecified osteoarthritis, unspecified site; I10 Essential (primary) hypertension; E78.5 Hyperlipidemia, unspecified; I65.29 Occlusion and stenosis of unspecified carotid artery; Z86.73 Personal history of transient ischemic attack (TIA), and cerebral infarction without residual deficits; Z86.711 Personal history of pulmonary embolism; Z85.810 Personal history of malignant neoplasm of tongue; Z85.89 Personal history of malignant neoplasm of other organs and systems; Z92.21 Personal history of antineoplastic chemotherapy; Z92.3 Personal history of irradiation; Z72.89 Other problems related to lifestyle; Z87.891 Personal history of nicotine dependence
CPT/HCPCS: 36415; 71045; 71046; 74176; 74177; 80048; 80053; 81003; 81015; 83690; 83735; 85025; 85610; 86850; 86900; 86901; 87040; 87086; 87641; 88304; 96374; 96375; 99285; A9270-GY; C1776; J1100; J2250; J2270; J2405; J2543; J2704; J3010; J3475; J3480; J3490; Q9967

== ENCOUNTER 2020-01-11 08:56 | Observation (INO) ==
[2020-01-11 10:00] LABS: ABS Lymphocytes 1.5 10^3/ul (1.0-4.8); ABS Monocytes 0.5 10^3/ul (0-0.8); ABS Neutrophils 4.9 10^3/ul (1.5-7.7); Eosinophil % 0.1 %; Hematocrit 25 % (42-52); Hemoglobin 8.2 g/dL (14.0-18.0); Lymphocyte % 21.3 %; Mean Corpuscular HGB Conc 33 g/dL (31-36); Mean Corpuscular Hemoglobin 29 pg (27-31); Mean Corpuscular Volume 87 fL (80-94); Mean Platelet Volume 7.2 fL (7.4-10.4); Platelet Count 334 10^3/uL (150-450); Red Blood Count 2.82 10^6 /uL (4.18-5.48); Red Cell Distribution Width 17 % (10-15); White Blood Count 6.9 10^3/uL (3.5-10.8)
[2020-01-11 10:07] LABS: Activated Partial Thrombo Time 38.6 seconds (26.0-38.0); INR 1.23 (0.82-1.09)
[2020-01-11 10:37] LABS: ALT 13 U/L (7-52); Albumin 3.7 g/dL (3.2-5.2); Alkaline Phosphatase 72 U/L (34-104); BUN/Creatinine Ratio 33.8 (8-20); Blood Urea Nitrogen 27 mg/dL (6-24); CO2 Carbon Dioxide 26 mmol/L (22-32); Calcium 8.9 mg/dL (8.6-10.3); Chloride 104 mmol/L (101-111); EGFR African American 116.7 (>60); EGFR Non-African American 96.4 (>60); Globulin 3.8 g/dL (2-4); Glucose 97 mg/dL (70-100); Sodium 136 mmol/L (135-145); Total Protein 7.5 g/dL (6.4-8.9)
[2020-01-11 10:38] LABS: Anion Gap 6 mmol/L (2-11)
[2020-01-11 12:05] LABS: Potassium Redraw 4.1 mmol/L (3.5-5.0)
[2020-01-11] MEDS: PILOCARPINE 5 MG PO SCH (18:13)
[2020-01-11] MEDS: Timolol 0.5% OPTH.SOL BTL RIGHT EYE SCH (18:13)
[2020-01-11 20:15] LABS: Hematocrit 24 % (42-52); Hemoglobin 8.2 g/dL (14.0-18.0)
[2020-01-12] MEDS: PILOCARPINE 5 MG PO SCH ×2 (00:27→09:42)
[2020-01-12 01:55] LABS: Hematocrit 25 % (42-52); Hemoglobin 8.4 g/dL (14.0-18.0)
[2020-01-12 06:30] LABS: ABS Lymphocytes 1.4 10^3/ul (1.0-4.8); ABS Monocytes 0.4 10^3/ul (0-0.8); ABS Neutrophils 3.6 10^3/ul (1.5-7.7); Eosinophil % 0.4 %; Hematocrit 24 % (42-52); Hemoglobin 7.9 g/dL (14.0-18.0); Mean Corpuscular HGB Conc 33 g/dL (31-36); Mean Corpuscular Hemoglobin 29 pg (27-31); Mean Corpuscular Volume 86 fL (80-94); Mean Platelet Volume 7.1 fL (7.4-10.4); Platelet Count 342 10^3/uL (150-450); Red Blood Count 2.77 10^6 /uL (4.18-5.48); Red Cell Distribution Width 17 % (10-15); White Blood Count 5.4 10^3/uL (3.5-10.8)
[2020-01-12 06:37] LABS: INR 1.14 (0.82-1.09)
[2020-01-12 06:51] LABS: Albumin 3.7 g/dL (3.2-5.2); Albumin/Globulin Ratio 1.1 (1-3); BUN/Creatinine Ratio 33.8 (8-20); Calcium 8.7 mg/dL (8.6-10.3); EGFR African American 116.7 (>60); EGFR Non-African American 96.4 (>60); Globulin 3.5 g/dL (2-4); Potassium 4.1 mmol/L (3.5-5.0); Total Bilirubin 0.2 mg/dL (0.2-1.0); Total Protein 7.2 g/dL (6.4-8.9)
[2020-01-12] MEDS: Timolol 0.5% OPTH.SOL BTL RIGHT EYE SCH (09:37)
[2020-01-12 16:43] VITALS: BP 128/62
== END 2020-01-12 16:00 | disposition home or self-care (01) ==
LOC: MED 08:56 → ED 08:56 → MED 15:28
PROVIDERS: ADMIT Internal Medicine; ATTEND Internal Medicine

== ENCOUNTER 2020-03-14 20:56 | Inpatient (IN) ==
[2020-03-14 21:18] LABS: ABS Monocytes 0.5 10^3/ul (0-0.8); ABS Neutrophils 7.7 10^3/ul (1.5-7.7); Eosinophil % 0.2 %; Hematocrit 33 % (42-52); Hemoglobin 11.1 g/dL (14.0-18.0); Lymphocyte % 10.4 %; Mean Corpuscular HGB Conc 34 g/dL (31-36); Mean Corpuscular Hemoglobin 28 pg (27-31); Mean Corpuscular Volume 81 fL (80-94); Mean Platelet Volume 6.8 fL (7.4-10.4); Platelet Count 233 10^3/uL (150-450); Red Blood Count 4.04 10^6 /uL (4.18-5.48); Red Cell Distribution Width 15 % (10-15); White Blood Count 9.3 10^3/uL (3.5-10.8)
[2020-03-14 21:26] LABS: Activated Partial Thrombo Time 35.1 seconds (26.0-38.0); INR 1.47 (0.82-1.09)
[2020-03-14] MEDS ORDERED: Iodixanol (CONTRAST) 320 MG/ML 100 ML SDV IV ONE (21:28)
[2020-03-14 21:36] LABS: Albumin/Globulin Ratio 1.2 (1-3); BUN/Creatinine Ratio 21.7 (8-20); Calcium 8.9 mg/dL (8.6-10.3); EGFR Non-African American 81.8 (>60); Globulin 3.4 g/dL (2-4); HDL Cholesterol 32.3 mg/dL; Potassium 4.2 mmol/L (3.5-5.0); Total Bilirubin 0.3 mg/dL (0.2-1.0); Total Protein 7.4 g/dL (6.4-8.9)
[2020-03-14 21:37] LABS: Troponin I 0.01 ng/mL (<0.03)
[2020-03-14] MEDS: NS 0.9% 1000 ml BAG 1,000 ML IV ONE (23:10)
[2020-03-15] MEDS: NS 0.9% 1000 ml BAG 1,000 ML IV ONE (00:13)
[2020-03-15] MEDS ORDERED: Piperacillin/Tazobac ADVAN 3.375 GM in NS 0.9% 100 ml BAG 100 ML IV ONE (00:14)
[2020-03-15] MEDS ORDERED: NS 0.9% IV ONE (00:15)
[2020-03-15] MEDS ORDERED: NS 0.9% 1000 ml BAG 1,000 ML IV ONE (00:32)
[2020-03-15 00:34] LABS: Urine Appearance Clear; Urine Bilirubin Negative (Negative); Urine Blood 1+ (Negative); Urine Color Yellow; Urine Glucose Negative (Negative); Urine Ketones Negative (Negative); Urine Nitrite Negative (Negative); Urine Protein 1+(30 mg/dL) (Negative); Urine Urobilinogen Negative (Negative)
[2020-03-15 00:37] LABS: Urine Bacteria Absent (Absent); Urine Red Blood Cell Trace(0-2/hpf) (Absent); Urine White Blood Cell Absent (Absent)
[2020-03-15 00:41] LABS: Influenza A Molecular Negative (Negative); Influenza B Molecular Negative (Negative)
[2020-03-15] MEDS ORDERED: Ondansetron 4 mg VIAL 2 MG/ML 2 ml VIAL IV PRN (00:43)
[2020-03-15 00:47] LABS: Urine Specific Gravity 1.005 (1.010-1.030)
[2020-03-15] MEDS ORDERED: NS 0.9% 1000 ml BAG 1,000 ML IV SCH (01:00)
[2020-03-15] MEDS ORDERED: Zosyn per Pharmacy NOTE FOLLOW UP SCH (01:00)
[2020-03-15] MEDS ORDERED: Norepinephrine 16MCG/ML IVPRE 4,000 MCG/250 ML BAG IV SCH (02:00)
[2020-03-15] MEDS ORDERED: Iohexol 350 (CONTRAST) 500 ML MDV IV ONE (02:58)
[2020-03-15] MEDS ORDERED: Albuterol HFA INHALER 8 gm MDI INH PRN (03:20)
[2020-03-15] MEDS: ZOSYN 3.375 GM Q8H per EXTENDED INFUSION IV SCH ×3 (04:53→20:23)
[2020-03-15] MEDS: CMC:Pilocarpine 5 mg TAB (NF) PO SCH ×2 (09:08→09:20)
[2020-03-15] MEDS: PILOCARPINE 5 MG PO SCH ×2 (17:23→20:22)
[2020-03-16 06:45] LABS: ABS Lymphocytes 1.6 10^3/ul (1.0-4.8); ABS Monocytes 0.4 10^3/ul (0-0.8); ABS Neutrophils 6.2 10^3/ul (1.5-7.7); Eosinophil % 0.6 %; Hematocrit 31 % (42-52); Hemoglobin 10.1 g/dL (14.0-18.0); Lymphocyte % 19.6 %; Mean Corpuscular HGB Conc 32 g/dL (31-36); Mean Corpuscular Hemoglobin 27 pg (27-31); Mean Corpuscular Volume 84 fL (80-94); Mean Platelet Volume 7.3 fL (7.4-10.4); Platelet Count 207 10^3/uL (150-450); Red Blood Count 3.75 10^6 /uL (4.18-5.48); Red Cell Distribution Width 15 % (10-15); White Blood Count 8.4 10^3/uL (3.5-10.8)
[2020-03-16 07:08] LABS: Albumin 3.3 g/dL (3.2-5.2); Albumin/Globulin Ratio 1.1 (1-3); BUN/Creatinine Ratio 18.6 (8-20); Calcium 8.6 mg/dL (8.6-10.3); EGFR African American 165.3 (>60); EGFR Non-African American 136.6 (>60); Globulin 3.1 g/dL (2-4); HDL Cholesterol 30.8 mg/dL; Magnesium 1.7 mg/dL (1.9-2.7); Potassium 4.1 mmol/L (3.5-5.0); Total Bilirubin 0.2 mg/dL (0.2-1.0); Total Protein 6.4 g/dL (6.4-8.9)
[2020-03-16] MEDS: ZOSYN 3.375 GM Q8H per EXTENDED INFUSION IV SCH ×2 (07:14→12:54)
[2020-03-16 07:56] LABS: C Reactive Protein 80.47 mg/L (<8.01)
[2020-03-16] MEDS ORDERED: Magnesium Sulfate IV 3 GM in NS 0.9% 100 ml BAG 100 ML IVPB ONE (09:54)
[2020-03-16 11:51] VITALS: BP 107/59
[2020-03-16] MEDS ORDERED: Magic MouthWash2-BEN/MAAL/LIDO/NYST 240 ML BTL (alt formulation) SWISH SPIT SCH (13:00)
== END 2020-03-16 15:40 | disposition home or self-care (01) | DRG 871 ==
LOC: ED 20:56 → ICU 03-15 00:43 → MEDTELE 03-15 16:30
PROVIDERS: ADMIT Internal Medicine Interventional Cardiology; ATTEND Internal Medicine